=== PATIENT | male | born 1975 | race Caucasian/White ===

== ENCOUNTER 2022-09-17 13:42 | Emergency (ER) | payer OTHER, SELFPAY ==
[2022-09-17 13:51] VITALS: BP 148/107; PULSE 92; RESP 16; TEMP 36.6; O2SAT 93
[2022-09-17 13:55] VITALS: BP 148/107; PULSE 93; RESP 18; TEMP 37; O2SAT 94; BMI 24.9
--- NOTE | 2022-09-17 13:55 | ED.ALCOHOL ---
HPI - Alcohol General Chief Complaint: ETOH/Substance Use Stated Complaint: ETOH Time Seen by Provider: 09/17/22 13:46 Source: EMS Mode of arrival: EMS Limitations: other ( Significantly intoxicated) History of Present Illness HPI narrative: this is a 47-year-old male presenting via ambulance for acute alcohol intoxication. According to EMS patient was drinking since yesterday, family got nervous because he had 1 episode of vomiting so they called 911 to get him evaluated. Unsure what patient drink. Patient too intoxicated to give me a history or review of systems. No reported trauma. No evidence of trauma on my exam. Related Data Previous Rx's Medication Instructions Recorded ondansetron 4 mg disintegrating 4 mg PO Q6H PRN nausea and 09/17/22 tablet vomiting #14 tabs Allergies Allergy/AdvReac Type Severity Reaction Status Date / Time SEASONAL ALLERGIES Allergy Unknown UNKNOWN Uncoded 06/11/20 17:29 Review of Systems Review of Systems: Constitutional : No Weight loss, No Fever, No Chills, No Fatigue, No Malaise ENT/Mouth : No sore throat, No Rhinorrhea Eyes: No Eye Pain, No Swelling, No Redness Cardiovascular : No Chest Pain, No SOB, No Dyspnea on Exertion, No Orthopnea, No Edema, No Palpitations Respiratory : No Cough, No Sputum, No Wheezing Gastrointestinal : No Nausea, No Vomiting, No Diarrhea, No Constipation, No abdominal Pain, No Hematochezia, No Melena Genitourinary : No Dysuria, No Urinary Frequency, No Hematuria, Musculoskeletal : No joint pain, No Myalgias, No Joint Swelling Skin : No Skin Lesions, No rash Neuro : No Weakness, No Numbness, No Dizziness, No Headache Psych : No Anxiety/Panic, No Depression All other systems reviewed and are negative Yes all other systems are reviewed and are negative [facility] Past Medical History Attestation statement: The following information was validated with the patient. Source: old records reviewed and nursing notes reviewed Social History Social History Advance Directives: No Advance Directives Information Provided: No Physical Exam ED Vital Signs: Vital Signs - 24 hr 09/17/22 13:51 09/17/22 13:55 09/17/22 17:19 Temperature 97.9 F 98.6 F Pulse Rate 92 93 101 H Respiratory Rate 16 18 18 Blood Pressure 148/107 H 148/107 H 113/82 Pulse Oximetry 93 94 95 Oxygen Delivery Method Room Air Room Air Room Air BMI result Body Mass Index 24.9 vss Appearance: Alert.? Oriented X3.? No acute distress.? Head: Normocephalic, atraumatic, no step-offs or deformities Eyes: Pupils equal, round and reactive to light.? Neck: Normal inspection.? Neck supple.? CVS: Normal heart rate and rhythm.? Pulses normal.? Respiratory: No respiratory distress.? Breath sounds normal.? Abdomen: Soft and nontender.? Skin: Skin warm and dry.? Normal skin color.? Normal skin turgor.? Extremities: No lower extremity edema.? No calf ttp. 5/5 strength to bilateral upper and lower extremities Neuro: Oriented X 3.? No motor deficit.? No sensory deficit. CN 2-12 intact . Patient ambulating with steady gait normal coordination. Course Reevaluation(s) Reevaluation #1: Patient is still extremely intoxicated, talking to himself However is alert and oriented x3 at this time and ambulatory. Head CT with no acute findings. His ethanol level was 492. Urine toxicology negative. Patients sister states she can not get him this late because she is leaving town. At this time patient be placed into observation to allow more time to be evaluated by the behavioral health team for a substance use disorder evaluation. At time observation was started patient common cooperative no acute distress will continue to monitor. Time: 20:44 Medical Decision Making Medical Decision Making [facility] Narrative: 1358 47 year old male presents w/ acute alcohol intoxication from home PE very intoxicated individual. Smells like alcohol. Plan- REED, ETOH. No signs of trauma on exam no Lab Data Labs: Lab Results 09/17/22 09/17/22 Range/Units 14:17 16:46 Urine Opiates Screen Not Detected (Not Detect) Urine Fentanyl Screen Not Detected (Not Detect) Ur Barbiturates Screen Not Detected (Not Detect) Ur Phencyclidine Scrn Not Detected (Not Detect) Ur Amphetamines Screen Not Detected (Not Detect) U Benzodiazepines Scrn Not Detected (Not Detect) Urine Cocaine Screen Not Detected (Not Detect) U Marijuana (THC) Screen Not Detected (Not Detect) Ethyl Alcohol 492 H* mg/dL Medications Administered Discontinued Medications Generic Name Dose Route Start Last Admin Trade Name Freq PRN Reason Stop Dose Admin Ondansetron HCl 4 mg 09/17/22 13:50 09/17/22 14:00 Ondansetron Odt 4 Mg TabLandon BRANCH 09/17/22 13:51 4 mg ONCE ONE Administration Critical Care Time Critical Care Time Critical Care Time: No Discharge Plan Discharge Clinical Impression: Alcohol intoxication Patient Disposition: Home, Self-Care Instructions: Alcohol Intoxication (ED) Additional Instructions: Take your medications as prescribed. If you were prescribed antibiotics today, it is important that you take your medication to their entirety, do not skip any doses, do not finish them early. Follow-up with your primary care provider this week. Return to the emergency department with new or worsening symptoms. Such as fevers, chills, chest pain, shortness of breath, nausea, vomiting, dizziness, headache, vision changes, lethargy In case of emergency call 911 Drinking in excess can lead to nausea and vomiting, please return to the emergency department if there is blood in vomit or any new or worsening symptoms. Prescriptions: New ondansetron 4 mg tablet,disintegrating 4 mg PO Q6H PRN (Reason: nausea and vomiting) Qty: 14 0RF Referrals: [facility] [Provider Group] - 1 week
[2022-09-17 14:43] LABS: Ethanol 492 mg/dL
--- NOTE | 2022-09-17 17:05 | PC.NURSE ---
pt with etoh of 492 slurring words sleepy with unsteady gait ct pending
[2022-09-17 17:13] LABS: Amphetamine Screen Urine Not Detected (Not Detect); Barbiturates, Urine Not Detected (Not Detect); Benzodiazepines Screen Urine Not Detected (Not Detect); Cannabinoid Screen Urine Not Detected (Not Detect); Cocaine Screen Urine Not Detected (Not Detect); Fentanyl, urine Not Detected (Not Detect); Opiate Screen Urine Not Detected (Not Detect); Phencyclidine Screen Urine Not Detected (Not Detect)
[2022-09-17 17:19] VITALS: BP 113/82; PULSE 101; RESP 18; O2SAT 95
--- NOTE | 2022-09-17 18:54 | PC.NURSE ---
This mortgage or loan underwriter assumed care of this PT at this time.
--- NOTE | 2022-09-17 21:23 | PC.NURSE ---
Assumed care of pt. at 1945. Pt. lying in bed at this time. O2 sats dropped down to 88 and BP was noted to be low 89/53. Woke pt. up and repositioned and revitaled. 02 sats immediately back up to 97% and BP back to normal limits.
--- NOTE | 2022-09-17 21:25 | PC.NURSE ---
Pt. now awake in room and asking for something to eat. Provided with a ham sandwich and gingerale.
[2022-09-17 22:29] LABS: COVID-19 Test Negative (Negative)
[2022-09-17 23:22] VITALS: BP 130/88; PULSE 107; RESP 22; TEMP 36.6; O2SAT 92
--- NOTE | 2022-09-17 23:23 | MHC.EDTECH ---
Pt changed into hospital gown from outside clothes.Pt personal belongings placed in belongings bag. Pt urinal emptied output 800. Pt given warm blanket. Call maddox and urinal placed in reach
[2022-09-18 02:40] VITALS: BP 113/73; PULSE 112; RESP 20; TEMP 36.5; O2SAT 93
--- NOTE | 2022-09-18 04:20 | PC.NURSE ---
Pt. sleeping. No distress noted. Respirations even and unlabored. HR is at 100.
[2022-09-18 05:36] VITALS: BP 106/75; PULSE 113; RESP 19; TEMP 36.6; O2SAT 94
[2022-09-18 07:25] VITALS: BP 103/76; PULSE 108; RESP 17; TEMP 36.9; O2SAT 95
--- NOTE | 2022-09-18 07:49 | PC.NURSE ---
pt does not want Detox, notified
== END 2022-09-18 10:07 | disposition home or self-care (01) ==
PROVIDERS: Physician Assistant; Emergency Provider Internal Medicine
DX: F10.920 Alcohol use, unspecified with intoxication, uncomplicated (principal); Y90.8 Blood alcohol level of 240 mg/100 ml or more; Z20.822 Contact with and (suspected) exposure to COVID-19
CPT/HCPCS: 36415; 70450; 80307; 82077; 87635; 99284; 99285

== ENCOUNTER 2024-08-03 19:47 | Emergency (ER) | payer OTHER, SELFPAY ==
[2024-08-03 20:05] VITALS: BP 183/117; PULSE 97; RESP 16; TEMP 36.1; O2SAT 99; BMI 26.0
[2024-08-03 22:15] VITALS: BP 162/88; PULSE 98; RESP 18; TEMP 36.8; O2SAT 98
--- NOTE | 2024-08-03 22:21 | ED_ITS ---
HPI - Back Pain/Injury General Chief Complaint: Back Pain/Injury Stated Complaint: ? pinched nerve in back Time Seen by Provider: 08/03/24 21:51 Source: patient Mode of arrival: ambulatory Limitations: no limitations History of Present Illness ED Provider: rfanklyn BASURTO Narrative: Patient apparently slipped on the leaves 5 days ago since then having pain in the left lower back shooting to the leg patient was seen at [facility] CT scan x-rays were negative does not have any pain medication no prior history of back problems no bladder or bowel involvement Related Data Previous Rx's ?Medication ?Instructions ?Recorded ondansetron 4 mg disintegrating 4 mg PO Q6H PRN nausea and 09/17/22 tablet vomiting #14 tabs cyclobenzaprine 10 mg tablet 10 mg PO Q8H #20 tabs 08/03/24 oxycodone 5 mg tablet 5 mg PO Q6H PRN pain #20 tabs 08/03/24 Allergies Allergy/AdvReac Type Severity Reaction Status Date / Time SEASONAL ALLERGIES Allergy Unknown UNKNOWN Uncoded 08/03/24 20:08 Review of Systems Review of Systems: Yes all other systems are reviewed and are negative [facility] Social History Social History Alcohol intake: current Alcohol intake frequency: 3 or more drinks per day Alcohol type: beer Advance Directives: No Advance Directives Information Provided: Yes Do you have a plan to hurt others: No Plan Physical Exam Vital Signs: Vital Signs: Last Vital Signs Temp 98.3 F 08/03/24 22:51 Pulse 98 08/03/24 22:51 Resp 18 08/03/24 22:51 BP 162/88 H 08/03/24 22:51 Pulse Ox 98 08/03/24 22:51 O2 Del Method Room Air 08/03/24 22:51 BMI result Body Mass Index 26.0 Appearance: Alert. Oriented X3. No acute distress. ENT: Pharynx normal. Oral Mucosa moist Neck: Normal inspection. Neck supple. No midline tenderness CVS: Normal heart rate and rhythm. Pulses normal. Respiratory: No respiratory distress. Equal air entry bilateral, no wheezing/rales/rhonchi Abdomen: Soft and nontender. Bowel sounds are present, no mass palpable, no CVA tenderness Skin: Skin warm and dry. Normal skin color. Normal skin turgor. Extremities: No lower extremity edema. No calf tenderness diffuse tenderness right sciatic area SLR negative bilaterally sacral sensation intact Neuro: Oriented X 3. No motor deficit. No sensory deficit.No cerebellar signs , cranial nerves II-XII intact Medications Administered Discontinued Medications Generic Name Dose Route Start Last Admin Trade Name Freq PRN Reason Stop Dose Admin Cyclobenzaprine HCl 10 mg 08/03/24 22:21 08/03/24 22:46 Cyclobenzaprine Hcl 10 Mg Tablet PO 08/03/24 22:22 10 mg ONCE ONE Administration Oxycodone HCl 5 mg 08/03/24 22:21 08/03/24 22:44 Oxycodone Hcl Immed Release 5 Mg Tablet PO 08/03/24 22:22 5 mg ONCE ONE Administration Medical Decision Making Medical Decision Making [facility] Narrative: Patient with low back contusion no signs of spinal cord injuries will give him muscle relaxant and pain medication patient ambulatory in steady gait Discharge Plan Discharge Clinical Impression: Strain of lumbar region Patient Disposition: Home, Self-Care Instructions: Low Back Strain (ED) Additional Instructions: Take pain medication and muscle relaxant prescribed Follow with your PCP Prescriptions: New cyclobenzaprine 10 mg tablet 10 mg PO Q8H Qty: 20 0RF oxycodone 5 mg tablet 5 mg PO Q6H PRN (Reason: pain) Qty: 20 0RF Rx Instructions: Partial Fill upon patient request. No Action ondansetron 4 mg tablet,disintegrating 4 mg PO Q6H PRN (Reason: nausea and vomiting) Qty: 14 0RF Interventions: ED Discharge Assessment Last Done: 08/03/24 22:51 Discharge Date/Time: 08/03/24 22:52 Print Language: Romansh
[2024-08-03] MEDS: oxyCODONE HCl Immed Release 5 MG TABLET PO (22:44)
[2024-08-03] MEDS: Cyclobenzaprine HCl 10 MG TABLET PO (22:46)
[2024-08-03 22:51] VITALS: BP 162/88; PULSE 98; RESP 18; TEMP 36.8; O2SAT 98
== END 2024-08-03 22:52 | disposition home or self-care (01) ==
PROVIDERS: Emergency Provider Internal Medicine
DX: S39.012A Strain of muscle, fascia and tendon of lower back, initial encounter (principal); W01.0XXA Fall on same level from slipping, tripping and stumbling without subsequent striking against object, initial encounter; Y93.H1 Activity, digging, shoveling and raking; Y92.007 Garden or yard of unspecified non-institutional (private) residence as the place of occurrence of the external cause; Y99.9 Unspecified external cause status
CPT/HCPCS: 99283

== ENCOUNTER 2024-08-10 22:28 | Emergency (ER) | payer OTHER, SELFPAY ==
[2024-08-10 22:39] VITALS: BP 146/87; BP 150/110; PULSE 111; PULSE 119; RESP 16; TEMP 37.2; O2SAT 95; BMI 26.3
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
[2024-08-10 23:50] VITALS: BP 115/79; PULSE 62; RESP 16; TEMP 36.3; O2SAT 97
[2024-08-11] MEDS: oxyCODONE HCl Immed Release 5 MG TABLET PO
[2024-08-11 00:06] VITALS: BP 115/79; PULSE 62; RESP 16; TEMP 36.3; O2SAT 97
== END 2024-08-11 00:06 | disposition home or self-care (01) ==
PROVIDERS: Emergency Provider Internal Medicine
DX: M54.50 Low back pain, unspecified (principal); M25.511 Pain in right shoulder
CPT/HCPCS: 99283

== ENCOUNTER 2024-11-26 02:08 | Emergency (ER) | payer OTHER, SELFPAY ==
[2024-11-26 02:15] VITALS: BP 156/113; BP 156/88; PULSE 114; PULSE 115; RESP 18; TEMP 37.1; O2SAT 97; O2SAT 98; BMI 29.3
[2024-11-26 02:27] LABS: MANUAL DIFF FLAG NO
[2024-11-26 02:28] LABS: Basophils Absolute Auto 0.1 X10*3/uL (0.0-0.2); Eosinophils Absolute Auto 0.1 X10*3/uL (0.0-0.4); Eosinophils Percent Auto 1.9 % (0-4); Hematocrit 43.6 % (42.0-52.0); Hemoglobin 15.1 g/dl (14.0-18.0); Imm Gran Abs Auto 0.01 X10*3/uL (0.00-0.03); Imm Gran Pct Auto 0.2 % (0.0-0.4); Lymphocytes Absolute Auto 1.4 X10*3/uL (1.2-4.9); Lymphocytes Percent Auto 27.1 % (20-40); Mean Corpuscular HGB Conc 34.6 g/dl (31.0-36.0); Mean Corpuscular Hemoglobin 31.4 pg (27.0-33.0); Mean Corpuscular Volume 90.6 fL (80.0-98.0); Mean Platelet Volume 9.6 fL (9.4-12.4); Monocytes Absolute Auto 0.5 X10*3/uL (0.1-1.2); Monocytes Percent Auto 10.3 % (2-11); Neutrophils Absolute Auto 3.1 x10*3/uL (2.0-8.3); Neutrophils Percent Auto 59.5 % (45-73); Platelet Count 230 X10*3/uL (160-400); Red Blood Count 4.81 X10*6/uL (4.60-5.80); Red Cell Distribution Width 12.2 % (11.0-16.0); White Blood Count 5.2 X10*3/uL (4.8-10.8)
[2024-11-26 02:48] LABS: Alanine Aminotransferase 185 U/L (0-40); Albumin Level 4.7 g/dL (3.5-5.0); Anion Gap 17 (12-20); Aspartate Amino Transferase 84 U/L (5-37); Bilirubin Direct 0.2 mg/dL (0.0-0.5); Bilirubin Total 0.4 mg/dL (0.0-1.0); Blood Urea Nitrogen 9 mg/dL (9-16); Calcium 9.7 mg/dL (8.4-10.2); Carbon Dioxide 22 mmol/L (22-29); Chloride 105 mmol/L (96-108); Creatinine Clr Calc Pharmacy 106.9; Estimated Glomerular Filt Rate > 60; Glucose Random 101 mg/dL (60-115); Lipase 27 U/L (8-78); Sodium 140 mmol/L (135-145); Total Protein 8.7 g/dL (6.5-8.0)
[2024-11-26 02:54] LABS: Alkaline Phosphatase 94 U/L (39-117)
[2024-11-26 04:10] LABS: Ethanol 209 mg/dL
[2024-11-26 05:46] VITALS: BP 146/105; PULSE 96; RESP 18; TEMP 36.6; O2SAT 96
--- OUTSIDE RECORDS SUMMARY | 2024-11-26 06:15 | XMS_ITS ---
Author Organization [facility] Address [address] [place], [place] [id number] Care Team Providers Care Proposal Coordinator Name Role Phone IRENE Vázquez Primary Care Provider Uday Reynoso Unavailable Unavailable Padma Mayfield Encounters Encounter Location Date Provider Diagnosis [facility] [address] [place] [phone] 04/05/2024 Padma Mayfield Plan Of Treatment No Information Progress Notes * Lj PATELDOB:1974 (49 yo M)Acc No.[id number]:04/05/2024 Case Management Patient:?Lj PATEL Provider:Regina Mayfield :1975???Age:49 Y???Sex:Male Manoj e:04/05/2024 Address:[address] [address], [facility] Pcp:IRENE Bañuelos Subjective: * Chief Complaints: * ??? * Medical History:? Objective: Assessment: Plan: * Treatment: * Images: Billing Information: * Visit Code:? * Procedure Codes:? Care Plan Details* * Electronic signature of Jluis Mayfield on 11/26/2024 at 06:15 AM EST Sign off status: Pending * Provider:Regina Mayfiled Date:? Generated for Shruthi bailey/Ya/eTransmitting on:?11/26/2024 06:15 AM EST
--- OUTSIDE RECORDS SUMMARY | 2024-11-26 06:15 | XMS_ITS ---
Author Organization [facility] Address [address] [place], [place] [id number] Care Team Providers Care Dispatch Coordinator Name Role Phone IRENE Vázquez Primary Care Provider Uday Reynoso Unavailable Unavailable Padma Mayfield [phone] Encounters Encounter Location Date Provider Diagnosis [facility] [address] [place] [phone] 01/26/2024 Padma Mayfield Plan Of Treatment No Information Progress Notes * Lj PATELDOB:1974 (49 yo M)Acc No.[id number]:01/26/2024 Case Management Patient:?Lj PATEL Provider:Regina Mayfield :1975???Age:49 Y???Sex:Male Manoj e:01/26/2024 Address:[address] [address], [facility] Pcp:IRENE Bañuelos Subjective: * Chief Complaints: * ??? * Medical History:? Objective: Assessment: Plan: * Treatment: * Images: Billing Information: * Visit Code:? * Procedure Codes:? Care Plan Details* * Electronic signature of Jluis Mayfield on 11/26/2024 at 06:15 AM EST Sign off status: Pending * Provider:Regina Mayfield Date:? Generated for Shruthi bailey/Ya/eTransmitting on:?11/26/2024 06:15 AM EST
--- OUTSIDE RECORDS SUMMARY | 2024-11-26 06:15 | XMS_ITS ---
Author Organization [facility] Address [address] [place], [place] [id number] Care Team Providers Care Transport Driver Name Role Phone IRENE Vázquez Primary Care Provider Uday Reynoso Unavailable Unavailable Padma Mayfield Encounters Encounter Location Date Provider Diagnosis [facility] [address] [place] [phone] 02/20/2024 Padma Mayfield Plan Of Treatment No Information Progress Notes * Lj PATELDOB:1974 (49 yo M)Acc No.[id number]:02/20/2024 Case Management Patient:?Lj PATEL Provider:Regina Mayfield :1975???Age:49 Y???Sex:Male Manoj e:02/20/2024 Address:[address] [address], [facility] Pcp:IRENE Bañuelos Subjective: * Chief Complaints: * [...]
--- OUTSIDE RECORDS SUMMARY | 2024-11-26 06:16 | XMS_ITS | Clinical Summary ---
Author Organization [facility] Address [address] [place] [address] Care Team Providers Care Passenger Interline Clerk Name Role Phone Unavailable Primary Care Provider Unavailabl e Source Comments PLEASE NOTE, if this patient is a minor, it may be UNLAWFUL to discuss sensitive information that is contained in these records (such as FAMILY PLANNING, MENTAL HEALTH or SUBSTANCE ABUSE) with the minor patient's parent or other person without the patient's specific authorization.[facility] Medications amoxicillin (AMOXIL) 500 mg capsuleIndications :Tooth infection Take 1 Capsule by mouth 3 (three) times daily 21 Capsule 2 Active ibuprofen 800 mg tabletIndications: Tooth pain Take 1 Tablet by mouth 3 (three) times daily as needed for pain 30 Tablet 2 Active ibuprofen 600 mg tabletIndications: Chronic apical periodontitis Take 1 Tablet by mouth 4 (four) times daily as needed for mild pain 20 Tablet 2 Active Active Problems No known active problems Social History Tobacco Use Types Packs/Day Years Used Date Smoking Tobacco: Never Smokeless Tobacco: Never Tobacco Cessation:Counseling Given: Not Answered Social Connections Answer Date Recorded Connectedness 0 06/13/2024 Financial Resource Strain Answer Date R ecorded Financial Resource Strain 0 2021 Stress Answer Date Recorded Stress 0 04/11/2022 Physical Activity Answer Date Recorded Physical Activity 0 04/11/2022 Food Insecurity Answer Date Recorded Food 0 06/20/2024 Transportation Needs Answer Date Record ed Transportation 0 04/11/2022 Housing Stability Answer Date Recorded Housing 0 04/11/2022 Safety and Environment Answer Date Andrew rded Safety 0 04/11/2022 Utilities Answer Date Recorded Utilities 0 04/11/2022 Employment Answer Date Recorded Stress 0 06/13/2024 Sex and Gender Information Value Date Recorded Sex Assigned at Not on file Legal Sex Male 11:50 AM PDT Gender Identity Not on file Sexual Orientation Not on file Last Filed Vital Signs Vital Sign Reading Time Taken Comments Blood Pressure 145/106 05/07/2022 11:51 AM EDT Pulse 90 05/07/2022 11:51 AM EDT Temperature - - Respiratory Rate - - Oxygen Saturation - - Inhaled Oxygen Concentration - - Weight - - Height - - Body Mass Index - - Plan of Treatment Health Maintenance Due Date Last Done Comments Diabetes Screening 1975 Hepatitis B Screening 1975 Hepatitis C Screening 1975 Lipid Screening 1975 Tobacco Screening 1975 HIV Screening 1975 Syphilis Screening 01/16/1989 Imm-DTaP/Tdap/Td (1 - Tdap) 1994 Imm-Hepatitis A (1 of 2 - Risk 2-dose series) 01/15/19 94 Imm-Hepatitis B (1 of 3 - 19+ 3-dose series) 4 CT Colonography 01/16/2020 Colonoscopy 01/16/2020 Colorectal Cancer Screening 01/16/2020 FIT/gFOBT 01/16/2020 Fecal DNA 01/16/2020 Flexible Sigmoidoscopy 01/16/2020 Hypertension Screening (#1) 05/07/2023 [id number] ( season) 2024 Imm-Influenza (#1) 2024 Alcohol and Drug Screen 09/25/2024 Depression Annual Screen 09/25/2024 Insurance [place] MEDICA[place] DENT[place] [facility]
== END 2024-11-26 06:12 | disposition left against medical advice (07) ==
LOC: HO.ED 06:12
PROVIDERS: Emergency Provider Emergency Medicine
DX: R10.9 Unspecified abdominal pain (principal); Z79.899 Other long term (current) drug therapy
CPT/HCPCS: 36415; 80048; 80076; 80307; 83690; 85025; 99281

== ENCOUNTER 2025-01-22 01:11 | Emergency (ER) | payer OTHER, SELFPAY ==
[2025-01-22 01:14] VITALS: BP 130/70; PULSE 94; O2SAT 98
[2025-01-22 01:44] VITALS: BP 148/97; PULSE 109; RESP 18; TEMP 36.7; O2SAT 97; BMI 24.1
--- NOTE | 2025-01-22 01:45 | ED_ITS ---
HPI - Abdominal Pain General Stated Complaint: ETOH Time Seen by Provider: 01/22/25 01:22 Source: patient and EMS Mode of arrival: EMS Limitations: no limitations History of Present Illness ED Provider: Dr. Alisson Prince HPI narrative: patient comes to the emergency room via EMS. According to EMS, the patient called them because he was feeling intoxicated. When I spoke with the patient, patient states that he has left lower quadrant pain and would like to have it checked. However, patient states that he wants pain medication, does not want any labs done, patient states that if we do not give him a private room he will leave against medical advice. Related Data Previous Rx's ?Medication ?Instructions ?Recorded ondansetron 4 mg disintegrating 4 mg PO Q6H PRN nausea and 09/17/22 tablet vomiting #14 tabs cyclobenzaprine 10 mg tablet 10 mg PO Q8H #20 tabs 08/03/24 oxycodone 5 mg tablet 5 mg PO Q6H PRN pain #20 tabs 08/03/24 cyclobenzaprine 10 mg tablet 10 mg PO Q8H #20 tabs 08/10/24 ibuprofen 600 mg tablet 600 mg PO Q6H PRN fever or pain 08/10/24 #30 tabs Allergies Allergy/AdvReac Type Severity Reaction Status Date / Time SEASONAL ALLERGIES Allergy Unknown UNKNOWN Uncoded 01/22/25 01:49 Review of Systems Review of Systems Constitutional : No Weight loss, No Fever, No Chills, No Night Sweats, No Fatigue, No Malaise ENT/Mouth : No Hearing loss, No Ear Pain, No Nasal Congestion, No Sinus Pain, No Hoarseness, No sore throat, No Rhinorrhea, No Swallowing Difficulty Eyes: No Eye Pain, No Swelling, No Redness, No Foreign Body, No Discharge, No Vision Changes Cardiovascular : No Chest Pain, No SOB, No Dyspnea on Exertion, No Orthopnea, No Edema, No Palpitations Respiratory : No Cough, No Sputum, No Wheezing, No Smoke Exposure, No Dyspnea Gastrointestinal : No Nausea, No Vomiting, No Diarrhea, No Constipation, Complaining of left lower quadrant pain Genitourinary : no irregular bleeding, No Dysuria, No Urinary Frequency, No Hematuria, No Urinary Incontinence, No Urgency, No Flank Pain, No Urinary Flow Changes, No Hesitancy Musculoskeletal : No joint pain, No Myalgias, No Joint Swelling Skin : No Skin Lesions, No rash Neuro : No Weakness, No Numbness, No Paresthesias, No Loss of Consciousness, No Dizziness, No Headache Psych : No Anxiety/Panic, No Depression, No SI/HI/AH/VH, No Social Issues, Heme/Lymph: No Bruising, No Bleeding,No Lymphadenopathy Endocrine : No Polyuria, No Polydipsia, No Temperature Intolerance [facility] Past Medical History Medical History Alcohol abuse Social History Social History Alcohol intake: current Alcohol intake frequency: 3 or more drinks per day Alcohol type: beer Physical Exam ED Const Other: Appearance: Alert. Oriented X3. No acute distress. patient is able to have a coherent conversation. Eyes: Pupils equal, round and reactive to light. ENT: Pharynx normal. Neck: Normal inspection. Neck supple. No lymph nodes noted. No crepitus CVS: Normal heart rate and rhythm. Pulses normal. Normal S1 and S2 Respiratory: No respiratory distress. Breath sounds normal. No Wheezing. No rales Abdomen: Soft and nontender. No rigidity. No distention. Skin: Skin warm and dry. Normal skin color. Normal skin turgor. Extremities: No lower extremity edema. No Lacerations. No Rash Neuro: Oriented X 3. No motor deficit. No sensory deficit. Moving all extremities. No slurred speech. CN 2 through 12 grossly intact Psych: calm, cooperative, normal affect Course Course Course Narrative: Patient is alert and oriented x3, patient has normal steady gait. Coherent. Patient demanding pain for left lower quadrant pain, states that he would like to have it addressed and checked . Patient declined any blood work or imaging. Patient is demanding a private room and oxycodone, otherwise he will leave. I discussed with the patient that at this time, we can not accommodate his request of putting him in a room, the emergency department is completely full. Patient declined any further assistance and would like to be discharged. I discussed with the patient that without any lab work or imaging we can not help him to determine what is causing the left lower quadrant pain. Patient leaving against medical advice. Clinically, patient is sober, ambulating with steady gait, coherent Discharge Plan Discharge Clinical Impression: Left lower quadrant pain, Alcohol abuse Patient Disposition: Left Against Medical Advice Instructions: Acute Abdominal Pain (ED), Abdominal Pain (ED) Additional Instructions: Please follow-up with your primary care physician tomorrow. If you have any worsening or new symptoms, please return to the emergency room or call 911 Prescriptions: No Action ondansetron 4 mg tablet,disintegrating 4 mg PO Q6H PRN (Reason: nausea and vomiting) Qty: 14 0RF cyclobenzaprine 10 mg tablet 10 mg PO Q8H Qty: 20 0RF ibuprofen 600 mg tablet 600 mg PO Q6H PRN (Reason: fever or pain) Qty: 30 0RF cyclobenzaprine 10 mg tablet 10 mg PO Q8H Qty: 20 0RF oxycodone 5 mg tablet 5 mg PO Q6H PRN (Reason: pain) Qty: 20 0RF Rx Instructions: Partial Fill upon patient request. Print Language: Stateless
--- NOTE | 2025-01-22 01:49 | PC.NURSE ---
Pt changed over by security and line maintenance technician. Pt A&Ox3, ambulated independently with steady gait.
--- NOTE | 2025-01-22 02:00 | PC.NURSE ---
This RN assumed care of pt but pt refused to be treated. Pt evaluated by MD and told MD that he did not want to be seen. Pt alert and oriented X4, ambulating in lopez without difficulty. Attempted to utilize park interpreter but pt stated he spoke Danish and did not want to talk with park interpreter. Pt refused to sign consent to treat with registration. Pt given back all belongings and escorted out by security.
[2025-01-22 02:02] VITALS: BP 148/97; PULSE 109; RESP 18; TEMP 36.7; O2SAT 97
== END 2025-01-22 02:09 | disposition left against medical advice (07) ==
LOC: HO.ED 02:07
PROVIDERS: Emergency Provider Emergency Medicine
DX: R10.32 Left lower quadrant pain (principal); F10.10 Alcohol abuse, uncomplicated; Y90.9 Presence of alcohol in blood, level not specified; Z53.29 Procedure and treatment not carried out because of patient's decision for other reasons
CPT/HCPCS: 99282; 99283

== ENCOUNTER 2025-04-01 17:07 | Emergency (ER) | payer OTHER, SELFPAY ==
[2025-04-01 17:26] VITALS: BP 131/82; PULSE 94; RESP 18; TEMP 36.6; O2SAT 95; O2SAT 99; BMI 28.6
--- NOTE | 2025-04-01 17:44 | ECG_ITS ---
Test Reason : L ARM PAIN Blood Pressure : */* mmHG Vent. Rate : 88 BPM Atrial Rate : 88 BPM P-R Int : 156 ms QRS Dur : 86 ms QT Int : 374 ms P-R-T Axes : 32 -6 23 degrees QTcB Int : 452 ms Normal sinus rhythm Minimal voltage criteria for LVH, may be normal variant ( R in aVL ) Nonspecific T wave abnormality Abnormal ECG When compared with ECG of 30-Jun-2024 23:57, Criteria for Septal infarct are no longer Present Referred By: Harmeet Fuentes Electronically Signed By: Ron Joshua
--- OUTSIDE RECORDS SUMMARY | 2025-04-01 17:48 | XMS_ITS | Clinical Summary ---
Author Organization [facility] Address [address] [place] [address] Phone Care Team Providers Care Aircraft Mechanic Electrical And Radio Name Role Phone Physician, Pcp Unknown Primary Care Provider Dacia vailable Allergies No known active allergies Encounters Date Type Department Care Team Description 02/27/2025 2:09 AM EDT - 02/27/2025 3:[address] [facility] Emergency [address] [place] [address] Discharge Disposition: Left Against Medical Advice from Last 3 Months Social History Tobacco Use Types Packs/Day Years Used Date Smoking Tobacco: Never Assessed Sex and Gender Information Value Date Recorded Sex Assigned at Not on file Legal Sex Male 2:55 AM EST Gender Identity Not on file Sexual Orientation Not on file Last Filed Vital Signs Vital Sign Reading Time Taken Comments Blood Pressure 130/94 02/27/2025 2:30 AM EDT Pulse 90 02/27/2025 2:25 AM EDT Temperature 36.4 C (97.5 F) 02/27/2025 2:25 AM EDT Respiratory Rate 18 02/27/2025 2:25 AM EDT Oxygen Saturation 97% 02/27/2025 2:25 AM EDT Inhaled Oxygen Concentration - - Weight - - Height - - Body Mass Index - - Plan of Treatment Health Maintenance Due Date Last Done Comments Hepatitis B Vaccines (1 of 3 - 19+ 3-dose series) 1994 Cholesterol Screening (Lipid Panel) 08/28/2022 Colorectal Cancer Screening: Colonoscopy 08/28/2022 Depression Screening 08/28/2022 HIV Screening 08/28/2022 Hepatitis C Screening 08/28/2022 Social Influencers of Health Screening 08/28/2022 Pneumococcal Vaccine: 50+ Years (1 of 1 - PCV) 2025 Zoster Vaccines (1 of 2) 2025 Influenza Vaccine (#1) 2025 , 07/10/2023, 07/25/2022, Additional history exists DTaP,Tdap,and Td Vaccines (2 - Td or Tdap) 06/23/2031 06/23/2021 COVID-19 Vaccine Completed 07/18/2024, , 08/17/2022, Additional history exists HIB Vaccines Aged Out No longer eligi ble based on patient's age to complete this topic HPV Vaccines Aged Out No longer eligi ble based on patient's age to complete this topic Hepatitis A Vaccines Aged Out No long er eligible based on patient's age to complete this topic IPV Vaccines Aged Out No longer eligi ble based on patient's age to complete this topic MMR Vaccines Aged Out No longer eligi ble based on patient's age to complete this topic Meningococcal ACWY Vaccine Aged Out N o longer eligible based on patient's age to complete this topic Meningococcal B Vaccine Aged Out No l onger eligible based on patient's age to complete this topic Pneumococcal Vaccine: Pediatrics (0 to 5 Years) and At-Risk Patients (6 to 49 Years) Aged Out No longer eligible based on patient's age to complete this topic RSV Immunization Patients Under 20 months Aged Out No longer eligible based on patient's age to complete this topic Varicella Vaccines Aged Out No longer eligible based on patient's age to complete this topic Insurance [facility] MEDICAID ADVANTAGE Advance Directives Documents on File Type Date Recorded Patient Wire Sawyer Expl anation Health Care Decision (hx) 03/15/2022 AD FLANNERY DIRECTIVE Health Care Decision (hx) 03/15/2022 AD FLANNERY DIRECTIVE Health Care Decision (hx) 03/15/2022 AD FLANNERY DIRECTIVE Health Care Decision (hx) 03/15/2022 AD FLANNERY DIRECTIVE Health Care Decision (hx) 03/15/2022 AD FLANNERY DIRECTIVE Health Care Decision (hx) 03/15/2022 AD FLANNERY DIRECTIVE Health Care Decision (hx) 03/15/2022 AD FLANNERY DIRECTIVE Care Teams Aircraft Mechanic Electrical And Radio Relationship Specialty Start Date End Date Physician, Pcp Unknown PCP - General 02/27/25
--- OUTSIDE RECORDS SUMMARY | 2025-04-01 17:48 | XMS_ITS | Clinical Summary ---
Author Organization [facility] Address [address] [place] [address] Care Team Providers Care Injection Molding Machine Setter Name Role Phone Unavailable Primary Care Provider [...] Mass Index - - Plan of Treatment Upcoming Encounters Date Type Department Care Team (Late st Contact Info) Description 05/02/2025 1:00 PM EDT [facility] Visit [facility] [address] [place] [phone] Kassi Ramirez DDS [address] [place] [address] Health Maintenance Due Date Last Done Comments Anxiety Screening 1975 Diabetes Screening 1975 Hepatitis B Screening 1975 [...] Flexible Sigmoidoscopy 01/16/2020 Hypertension Screening (#1) 05/07/2023 [id number] (1 - 2023- season) 2024 Alcohol and Drug Screen 09/25/2024 Depression Annual Screen 09/25/2024 Imm-Pneumococcal 50+ (1 of 1 - PCV) 2025 Imm-Zoster, Recombinant (1 of 2) 2025 Imm-Influenza (#1) 2025 Insurance [place] [facility] [place] [id number]
--- NOTE | 2025-04-01 17:55 | ED_ITS ---
HPI - General Adult General Chief complaint: Allergic Reaction Stated complaint: allergic reaction to bee sting Time Seen by Provider: 04/01/25 17:23 History of Present Illness ED Provider: Harmeet Fuentes MD HPI narrative: This is a 50-year-old male initially I thought there was a language barrier but later felt he was possibly intoxicated with alcohol limiting the history. Patient through the plating department helper tells me that he was stung by a black and yellow insect he thought it was a bee early this morning at about 10:00. He said he felt itchy on the left arm but delayed calling until just before arrival here calling 911 for help. Denies chest pain he denies any focal neurologic complaints. He denies to me that he is drinking alcohol but has a documented history of alcohol use disorder in our system. EMS gave oral Benadryl. The patient arrived with normal vitals protecting his airway no urticaria or obvious oropharyngeal edema. Related Data Allergies Allergy/AdvReac Type Severity Reaction Status Date / Time bee pollen (bee stings) Allergy Nausea and Verified 04/01/25 17:28 Vomiting [facility] Social History Social History Alcohol intake: current Smoked in Last 30 Days: No Advance Directives: No Advance Directives Information Provided: No Physical Exam ED Vital Signs: Vital Signs - 24 hr 04/01/25 17:26 Temperature 97.8 F Pulse Rate 94 Respiratory Rate 18 Blood Pressure 131/82 Pulse Oximetry 95 Oxygen Delivery Method Room Air BMI result Body Mass Index 28.6 EXAM: Gen: Alert, looks little bit confused and not following commands very well. glassy eyes I do question alcohol intoxication as he does look a little bit like that Head: Atraumatic Eyes: Anicteric, Normal conjunctiva. ENT: Moist mucosa, no pallor. ? Neck: Supple. Skin: ?No observable rash or bruising on exposed or examined skin Respiratory: Breathing comfortably, No distress.Clear to auscultation bilaterally, symmetric chest expansion, No wheeze, rales, ronchi. Cardiovascular: Regular rate and rhythm. No murmurs or rub. Well perfused periphery, warm extremities. No edema. ? Abdominal: No focal tenderness. Soft, no objective distension. No palpable masses or obvious organomegaly. ?No guarding, no rebound tenderness or other peritoneal findings. : No flank tenderness. Neuro: Alert. Gross movement of all extremities intact. ? Psych: Calm. Cooperative. MSK: No grossly visible deformity. Vital signs: See flowsheet Medical Decision Making Medical Decision Making MDM Narrative: Medical Decision Making: This is a 50-year-old male who called EMS concerned personally for describing being stung by a bee many hours ago in the back of the left neck he feels nauseated vomited once nonbloody nonbilious. EMS gave Benadryl. He did not complain of oropharyngeal swelling dysarthria difficulty breathing or stridor. He has no previous allergies or anaphylaxis. is at the bedside provides additional history. Nurse called me to the bedside shortly after the patient's arrival she is felt he was acting abnormal. I came to evaluate the patient who had a slightly glossy eyes and was not following commands very well had no focal deficits and no signs of anaphylaxis or angioedema or urticaria. I saw no signs of insect bite envenomation or trauma to the neck. He looked intoxicated with alcohol to me but he denied this. Later his alcohol returned positive likely explaining his symptoms. We monitored him briefly and 1 safely walking with steady gait clear speech his took him home. Preliminary Favored Differential Diagnosis: Alcoholic intoxication, insect bite allergy among additional considered etiologies Testing Interpreted Independently: ECG sinus rhythm rate 88 QTC 452, ST- elevation concave upward V2 and V3 not suggestive of ischemic changes probably LVH. No reciprocal changes. Radiology or Lab testing Results Reviewed: Not Applicable Consults: Not Applicable Independent Historians/External Chart Reviews: provide additional history, EMS provided additional history Social Determinants of Health Impacting MDM/Planning: Not Applicable Lab Data 04/01/25 18:21 04/01/25 18:21 Labs: Lab Results 04/01/25 Range/Units 18:21 WBC 4.5 L (4.8-10.8) X10*3/uL RBC 4.87 (4.60-5.80) X10*6/uL Hgb 15.3 (14.0-18.0) g/dl Hct 43.0 (42.0-52.0) % MCV 88.3 (80.0-98.0) fL MCH 31.4 (27.0-33.0) pg MCHC 35.6 (31.0-36.0) g/dl RDW 12.1 (11.0-16.0) % Plt Count 308 (160-400) X10*3/uL MPV 9.4 (9.4-12.4) fL Immature Gran % (Auto) 0.4 (0.0-0.4) % Neut % (Auto) 49.0 (45-73) % Lymph % (Auto) 41.3 H (20-40) % [place] % (Auto) 5.5 (2-11) % Eos % (Auto) 2.9 (0-4) % Baso % (Auto) 0.9 (0-2) % Lymph # (Auto) 1.9 (1.2-4.9) X10*3/uL [place] # (Auto) 0.3 (0.1-1.2) X10*3/uL Eos # (Auto) 0.1 (0.0-0.4) X10*3/uL Baso # (Auto) 0.0 (0.0-0.2) X10*3/uL Abs Immat Gran (auto) 0.02 (0.00-0.03) X10*3/uL Absolute Neuts (auto) 2.2 (2.0-8.3) x10*3/uL Absolute Nucleated RBC 0.000 (0.0-0.012) X10*3/uL Nucleated RBC % (auto) 0.0 (0.0-0.2) /100WBC Sodium 137 (135-145) mmol/L Potassium 3.6 (3.3-5.1) mmol/L Chloride 102 (96-108) mmol/L Carbon Dioxide 21 L (22-29) mmol/L Anion Gap 18 (12-20) BUN 7 L (9-16) mg/dL Creatinine 0.66 (0.5-1.4) mg/dL Estim Creat Clear Calc 124.5 Estimated GFR > 60 Random Glucose 96 (60-115) mg/dL Calcium 8.4 D (8.4-10.2) mg/dL Total Bilirubin 0.3 (0.0-1.0) mg/dL AST 119 H (5-37) U/L ALT 121 H (0-40) U/L Alkaline Phosphatase 86 (39-117) U/L Total Protein 7.7 (6.5-8.0) g/dL Albumin 4.5 (3.5-5.0) g/dL Ethyl Alcohol 396 H* mg/dL Discharge Plan Discharge Clinical Impression: Alcohol intoxication Patient Disposition: Home, Self-Care Instructions: Alcohol Intoxication (ED) Additional Instructions: You were found to be intoxicated, you were monitored in the emergency department until you were clinically sober. Interventions: ED Discharge Assessment Last Done: 04/01/25 21:32 Discharge Date/Time: 04/01/25 21:33 Print Language: Croatian
[2025-04-01 18:24] LABS: MANUAL DIFF FLAG NO
[2025-04-01 18:27] LABS: Hematocrit 43.0 % (42.0-52.0); Hemoglobin 15.3 g/dl (14.0-18.0); Imm Gran Abs Auto 0.02 X10*3/uL (0.00-0.03); Imm Gran Pct Auto 0.4 % (0.0-0.4); Lymphocytes Absolute Auto 1.9 X10*3/uL (1.2-4.9); Mean Corpuscular HGB Conc 35.6 g/dl (31.0-36.0); Mean Corpuscular Hemoglobin 31.4 pg (27.0-33.0); Mean Corpuscular Volume 88.3 fL (80.0-98.0); NRBC Abs Auto 0.000 X10*3/uL (0.0-0.012); NRBC Pct Auto 0.0 /100WBC (0.0-0.2); Platelet Count 308 X10*3/uL (160-400); Red Blood Count 4.87 X10*6/uL (4.60-5.80); White Blood Count 4.5 X10*3/uL (4.8-10.8)
[2025-04-01 18:40] LABS: Alanine Aminotransferase 121 U/L (0-40); Albumin Level 4.5 g/dL (3.5-5.0); Alkaline Phosphatase 86 U/L (39-117); Anion Gap 18 (12-20); Aspartate Amino Transferase 119 U/L (5-37); Blood Urea Nitrogen 7 mg/dL (9-16); Calcium 8.4 mg/dL (8.4-10.2); Carbon Dioxide 21 mmol/L (22-29); Chloride 102 mmol/L (96-108); Creatinine Clr Calc Pharmacy 124.5; Estimated Glomerular Filt Rate > 60; Potassium 3.6 mmol/L (3.3-5.1); Sodium 137 mmol/L (135-145); Total Protein 7.7 g/dL (6.5-8.0)
--- NOTE | 2025-04-01 18:47 | PC.NURSE ---
provider brought to room pt pt is sweaty and not following commands. not following hand grasp commands, not answering questions appropriately. MD at bedside preforms stroke scale. Pt states hold PO meds that were ordered and draw labs. ETOH came back 390s. Pt denies drinking any alcohol. he reports a bee sting this AM. There is no obvious sting or swelling to the back of his neck were he reports a sting.
[2025-04-01 19:11] VITALS: BP 128/89; PULSE 96; RESP 16; TEMP 36.4; O2SAT 95
--- NOTE | 2025-04-01 21:31 | PC.NURSE ---
reviewed discharge instructions with pt. pt verbalized understanding, no sign of distress.
[2025-04-01 21:32] VITALS: BP 128/89; PULSE 96; RESP 16; TEMP 36.4; O2SAT 95
== END 2025-04-01 21:33 | disposition home or self-care (01) ==
PROVIDERS: Emergency Provider Emergency Medicine
DX: F10.120 Alcohol abuse with intoxication, uncomplicated (principal); Y90.8 Blood alcohol level of 240 mg/100 ml or more
CPT/HCPCS: 36415; 80053; 80307; 85025; 93005; 99283; 99284

== ENCOUNTER → 2025-04-01 17:44 | Outpatient (BNV) | payer OTHER, SELFPAY | PROVIDERS: Emergency Provider Emergency Medicine; Visit Provider Internal Medicine Cardiovascular Disease | DX: R94.31 Abnormal electrocardiogram [ECG] [EKG] (principal); M79.602 Pain in left arm | CPT/HCPCS: 93010 ==

== ENCOUNTER 2025-06-01 23:58 | Emergency (ER) | payer OTHER, SELFPAY ==
--- OUTSIDE RECORDS SUMMARY | 2024-01-26 09:15 | XMS_ITS ---
Author Organization [facility] Address [address] [place] [address] Care Team Providers Care Manager Of Distribution Name Role Phone IRENE Vázquez Primary Care Provider Uday Wallace Unavailable Unavailable Padma Mayfield Encounters Encounter Location Date Provider Diagnosis [facility] [address] [place] [phone] 01/26/2024 Padma Mayfield Plan Of Treatment No Information Progress Notes * Lj PATELDOB:1974 (50 yo M)Acc No.[id number]:01/26/2024 Case Management Patient: Lj CHEEK Provider: Luz Marina Mayfield :1975 A ge:49 Y S ex:Male Date:01/26/2024 Address:[address] [address], [facility] Pcp:IRENE Bañuelos Subjective: * Chief Complaints: * * Medical History: Objective: Assessment: Plan: * Treatment: * Images: Billing Information: * Visit Code: * Procedure Codes: Care Plan Details* * Electronic signature of Jluis Mayfield on 06/02/2025 at 12:21 AM EDT Sign off status: Pending * Provider: Luz Marina Mayfield Date: 01/26/2024 Generated for Judi ng/Faxing/eTransmitting on: 0 06/02/2025 12:21 AM EDT
--- OUTSIDE RECORDS SUMMARY | 2024-02-20 10:15 | XMS_ITS ---
Author Organization [facility] Address [address] [place] [address] Care Team Providers Care Social Security Specialist Name Role Phone IRENE Vzáquez Primary Care Provider Uday Wallace Unavailable Unavailable Padma Mayfield [phone] Encounters Encounter Location Date Provider [facility] [address] [place] [phone] 02/20/2024 Padma Mayfield Plan Of Treatment No Information Progress Notes * Lj PATELDOB:1974 (50 yo M)Acc No.[id number]:02/20/2024 Case Management Patient: jL CHEEK Provider: Luz Marina Mayfield :1975 A ge:49 Y S ex:Male Date:02/20/2024 Address:[address] [address], [facility] Pcp:IRENE Bañuelos Subjective: * Chief Complaints: * * Medical History: Objective: Assessment: Plan: * Treatment: * Images: Billing Information: * Visit Code: * Procedure Codes: Care Plan Details* * Electronic signature of Jluis Mayfield on 06/02/2025 at 12:21 AM EDT Sign off status: Pending * Provider: Luz Marina Mayfield Date: 02/20/2024 Generated for Judi ng/Faxing/eTransmitting on: 0 06/02/2025 12:21 AM EDT
--- OUTSIDE RECORDS SUMMARY | 2024-04-05 10:00 | XMS_ITS ---
Author Organization [facility] Address [address] [place] [address] Care Team Providers Care Manager Outreach Name Role Phone IRENE Vázquez Primary Care Provider Uday Wallace Unavailable Unavailable Padma Mayfield [phone] Encounters Encounter Location Date Provider Diagnosis [facility] [address] [place] [phone] 04/05/2024 Padma Mayfield Plan Of Treatment No Information Progress Notes * Lj PATELDOB:1974 (50 yo M)Acc No.[id number]:04/05/2024 Case Management Patient: Lj CHEEK Provider: Luz Marina Mayfield :1975 A ge:49 Y S ex:Male Date:04/05/2024 Address:[address] [address], [facility] Pcp:IRENE Bañuelos Subjective: * Chief Complaints: * * Medical History: Objective: Assessment: Plan: * Treatment: * Images: Billing Information: * Visit Code: * Procedure Codes: Care Plan Details* * Electronic signature of Jluis Mayfield on 06/02/2025 at 12:22 AM EDT Sign off status: Pending * Provider: Luz Marina Mayfield Date: 0 04/05/2024 Generated for Printi ng/Faxing/eTransmitting on: 0 06/02/2025 12:22 AM EDT
--- OUTSIDE RECORDS SUMMARY | 2025-03-11 09:15 | XMS_ITS ---
Author Organization [facility] Address [address] [place] [address] Care Team Providers Care Reporting Consultant Name Role Phone IRENE Vázquez Primary Care Provider [phone] Uday Wallace Unavailable Unavailable Padma Mayfield Encounters Encounter Location Date Provider Diagnosis [facility] [address] [place] [phone] 03/11/2025 Padma Mayfield Plan Of Treatment No Information Progress Notes * Lj PATELDOB:1974 (50 yo M)Acc No.[id number]:03/11/2025 Case Management Patient: Lj CHEEK Provider: Luz Marina Mayfield :1975 A ge:50 Y S ex:Male Date:03/11/2025 Address:[phone], [facility] Pcp:IRENE Bañuelos Subjective: * Chief Complaints: * * Medical History: Objective: Assessment: Plan: * Treatment: * Images: Billing Information: * Visit Code: * Procedure Codes: Care Plan Details* * Electronic signature of Jluis Mayfield on 06/02/2025 at 12:22 AM EDT Sign off status: Pending * Provider: Luz Marina Mayfield Date: 0 03/11/2025 Generated for Judi ng/Faxing/eTransmitting on: 0 06/02/2025 12:22 AM EDT
--- OUTSIDE RECORDS SUMMARY | 2025-03-21 10:00 | XMS_ITS ---
Author Organization [facility] Address [address] [place] [address] Care Team Providers Care Engineering Document Control Clerk Name Role Phone IRENE Vázquez Primary Care Provider [phone] Uday Wallace Unavailable Unavailable Padma Mayfield Encounters Encounter Location Date Provider Diagnosis [facility] [address] [place] [phone] 03/21/2025 Padma Mayfield Plan Of Treatment No Information Progress Notes * Lj PATELDOB:1974 (50 yo M)Acc No.[id number]:03/21/2025 Case Management Patient: Lj CHEEK Provider: Luz Marina Mayfield :1975 A ge:50 Y S ex:Male Date:03/21/2025 Address:[phone], [facility] Pcp:IRENE Bañuelos Subjective: * Chief Complaints: * * Medical History: Objective: Assessment: Plan: * Treatment: * Images: Billing Information: * Visit Code: * Procedure Codes: Care Plan Details* * Electronic signature of Jluis Mayfield on 06/02/2025 at 12:21 AM EDT Sign off status: Pending * Provider: Luz Marina Mayfield Date: 03/21/2025 Generated for Judi ng/Faxing/eTransmitting on: 0 06/02/2025 12:21 AM EDT
--- NOTE | ~2025-06-01 | CT_ITS ---
CLINICAL HISTORY: LLQ abd pain CT abdomen and pelvis with contrast Comparison: None provided Findings: Mild bibasilar atelectasis and/or scarring. Steatotic change in fat deposition of the liver. Gallbladder is distended and otherwise unremarkable for CT. Pancreas, adrenal glands, and spleen are unremarkable. No hydronephrosis. Mild dilatation of the ureter is nonspecific and may be secondary to bladder outlet obstruction given distention of the imaged bladder. Prostate gland measures 3.6 cm. Small mesenteric and periaortic lymph nodes are likely reactive. No small bowel obstruction. Severe stool burden is present, including the cecum. Wall thickening of the large intestine may reflect colitis, including lower descending colon and imaged sigmoid colon. Imaged appendix is within normal limits (image 38 of series 5). Phleboliths noted. Mild osteoarthritis of the hips. Facet arthropathy is multifocal. Grade 1 anterolisthesis of the L5-S1. Bilateral spondylolysis of the L5. Schmorl's nodes are multifocal. IMPRESSION: 1. Mild dilatation of the ureter is nonspecific may be secondary to bladder outlet obstruction given distention of the urinary bladder. 2. Mild wall thickening of the left distal large intestine is nonspecific. Mild colitis is considered. Otherwise, severe stool burden. 3. No small bowel obstruction. This document has been electronically signed by: Ender Harris MD on 06/02/2025 02:32:06
--- NOTE | 2025-06-02 | ECG_ITS ---
Test Reason : CP Blood Pressure : */* mmHG Vent. Rate : 108 BPM Atrial Rate : 108 BPM P-R Int : 158 ms QRS Dur : 80 ms QT Int : 346 ms P-R-T Axes : 35 -10 11 degrees QTcB Int : 463 ms Sinus tachycardia Minimal voltage criteria for LVH, may be normal variant ( R in aVL ) Borderline ECG No previous ECGs available Referred By: Generic ED Physician Electronically Signed By: ARCADIO GRIFFIN MD
[2025-06-02 00:05] VITALS: BP 153/100; BP 161/114; PULSE 109; PULSE 114; RESP 22; TEMP 37; O2SAT 95; O2SAT 98; BMI 28.3
[2025-06-02 00:08] VITALS: BP 153/100; PULSE 109; RESP 22; TEMP 37; O2SAT 95
[2025-06-02 00:17] LABS: Hematocrit 40.9 % (42.0-52.0); Hemoglobin 14.4 g/dl (14.0-18.0); Imm Gran Abs Auto 0.01 X10*3/uL (0.00-0.03); Imm Gran Pct Auto 0.2 % (0.0-0.4); Lymphocytes Absolute Auto 1.9 X10*3/uL (1.2-4.9); MANUAL DIFF FLAG NO; Mean Corpuscular HGB Conc 35.2 g/dl (31.0-36.0); Mean Corpuscular Hemoglobin 31.6 pg (27.0-33.0); Mean Corpuscular Volume 89.7 fL (80.0-98.0); NRBC Abs Auto 0.000 X10*3/uL (0.0-0.012); NRBC Pct Auto 0.0 /100WBC (0.0-0.2); Platelet Count 211 X10*3/uL (160-400); Red Blood Count 4.56 X10*6/uL (4.60-5.80); White Blood Count 5.5 X10*3/uL (4.8-10.8)
--- NOTE | 2025-06-02 00:18 | ED_ITS ---
HPI - Chest Pain General Chief Complaint: Chest Pain Stated Complaint: Chest pain, hx ETOH Time Seen by Provider: 06/02/25 00:04 Source: patient and EMS Mode of arrival: EMS Limitations: no limitations History of Present Illness ED Provider: Jesse VILCHIS HPI narrative: The patient is a 50-year-old male with a history of alcohol dependency and cocaine abuse presenting to the ED reporting he was drinking this evening when he developed epigastric and left-sided abdominal pain with bloating. The patient denies associated vomiting, diarrhea, fever/chills, cough, recent sick contacts or recent trauma. The patient denies cocaine use or other recreational drug use this evening. The patient appears clinically intoxicated, his ability to provide a reliable HPI is questionable. Related Data Previous Rx's ?Medication ?Instructions ?Recorded ondansetron 4 mg disintegrating 4 mg PO Q6H PRN nausea and 09/17/22 tablet vomiting #14 tabs cyclobenzaprine 10 mg tablet 10 mg PO Q8H #20 tabs 06/18 oxycodone 5 mg tablet 5 mg PO Q6H PRN pain #20 tab s 08/03/24 cyclobenzaprine 10 mg tablet 10 mg PO Q8H #20 tabs ibuprofen 600 mg tablet 600 mg PO Q6H PRN fever or p ain 08/10/24 #30 tabs Allergies Allergy/AdvReac Type Severity Reaction Status Date / Time bee pollen (bee stings) Allergy Nausea and Verified 06/02/25 00:07 Vomiting SEASONAL ALLERGIES Allergy Unknown UNKNOWN Uncoded 04/07/25 12:57 Review of Systems 2 Review of Systems: Yes all other systems are reviewed and are negative [facility] Past Medical History Medical History Alcohol abuse Social History Social History (System 04/07/25 @ 12:57 by Oriana Ruiz) Alcohol intake: current Alcohol intake frequency: 3 or more drinks per day Alcohol type: beer Smoked in Last 30 Days: No Use of substances other than those prescribed or required for medical reasons: Yes Substance Use Type: Crack/Cocaine Advance Directives: No Advance Directives Information Provided: No Physical Exam 2 Vital Signs: Vital Signs: Last Vital Signs Temp 98.6 F 06/02/25 00:08 Pulse 85 06/02/25 03:09 Resp 18 06/02/25 03:09 BP 120/84 06/02/25 03:09 Pulse Ox 92 06/02/25 03:09 O2 Del Method Room Air 06/02/25 03:09 BMI result Body Mass Index 28.3 CONSTITUTIONAL: The patient appears non-toxic, well nourished and in no acute distress. Vital signs as documented. HEAD: Atraumatic, normocephalic. EYES: EOMs grossly intact, pupils equal, conjunctiva clear, no exudate. ENT: Nares patent, no discharge. Airway patent, no audible stridor, visible mucosa is pink and moist without noted lesions. NECK: Trachea is midline, no obvious masses or gross abnormalities. CHEST: Symmetric movement, normal appearance. LUNGS: LS present and CTAB, no w/r/r. Non-labored work of breathing. CARDIAC: Regular Rhythm, S1/S2 appreciated, no murmurs, rubs or gallops. ABDOMEN: Abdomen soft x4 quadrants, positive tenderness to palpation of the left upper and lower quadrants, negative rebound, no palpable masses or organomegaly. Negative CVAT bilaterally. : Deferred. EXTREMITIES: Normal tone, moves all extremities spontaneously without reported pain. No obvious acute injury or deformity noted. NEURO: Alert and oriented x3, CN II-XII appear grossly intact. Cerebellar Functioning grossly intact. No obvious sensory or motor deficits. Speech clear and appropriate. PSYCH: normal affect, appropriate eye contact, fluid speech, with appropriate response to questioning. No reported suicidality or homicidality. SKIN: Warm, dry, color appropriate, normal turgor. No rashes noted. Medications Administered Discontinued Medications Generic Name Dose Route Start Last Admin Trade Name Freq PRN Reason Stop Dose Admin Iohexol 85 ml 06/02/25 01:38 06/02/25 01:40 Iohexol 350 Mg/Ml 100 Ml Infus..Btl IV 06/02/25 01:39 85 ml ONCE ONE Administration Medical Decision Making Medical Decision Making MDM Narrative: 1:29 AM 06/02/2025 (Micky VILCHIS): The patient is a 50-year-old male with a history of alcohol abuse and cocaine use presenting to the ED for evaluation of epigastric and left-sided abdominal pain which began while drinking alcohol this evening, patient denies associated recreational drug use/cocaine use. The patient in the ED appears clinically intoxicated, his ability to provide a reliable HPI is questionable. The patient's exam reveals tenderness of the left upper quadrant and left lower quadrant without rebound. The patient arrives tachycardic, but afebrile. EKG shows sinus tachycardia without ischemia. Troponin is negative. The patient's laboratory evaluation shows no leukocytosis, significant anemia, electrolyte abnormality, or SHERRIE. LFTs are mildly elevated consistent with alcohol use with AST 91 and ALT 147. Patient's ethanol level is 321. Lipase is normal. Patient will be sent for CT abdomen and pelvis to evaluate abdominal tenderness, we will also obtain a urinalysis and UDS. 3:13 AM 06/02/2025 (Micky VILCHIS): The patient's CT shows mild ureteral dilatation which may be secondary to bladder outflow obstruction given distended bladder on CT, there is also mild wall thickening of the left distal large intestine which is nonspecific, question mild colitis. There was significant stool burden, but no evidence of bowel obstruction or other acute intra- abdominal pathology. The patient's vital signs have improved compared to initial presentation, tachycardia and tachypnea has resolved, patient remains afebrile, no hypoxia , hypertension, or hypotension. Given the patient's reassuring laboratory evaluation, and nonspecific CT findings, the patient will be monitored to clinical sobriety and discharged pending sober re-evaluation. 6:16 AM 06/02/2025 (Dr. Aparna Flores, D.O.) patient now clinically sober as evidenced by clear speech and a steady gait. He is able to tolerate oral intake without issue. Plan for discharge and outpatient follow-up. Admission/Observation Consideration of admission/observation: Escalation of care including admission/observation considered Lab Data MDM Lab Attestation statement: I reviewed the patient's lab results. 06/02/25 00:13 06/02/25 00:13 Labs: Lab Results 06/02/25 06/02/25 06/02/25 Range/Units 00:13 01:24 03:34 WBC 5.5 (4.8-10.8) X10*3/uL RBC 4.56 L (4.60-5.80) X10*6/uL Hgb 14.4 (14.0-18.0) g/dl Hct 40.9 L (42.0-52.0) % MCV 89.7 (80.0-98.0) fL MCH 31.6 (27.0-33.0) pg MCHC 35.2 (31.0-36.0) g/dl RDW 12.2 (11.0-16.0) % Plt Count 211 D (160-400) X10*3/uL MPV 9.7 (9.4-12.4) fL Immature Gran % (Auto) 0.2 (0.0-0.4) % Neut % (Auto) 56.4 (45-73) % Lymph % (Auto) 34.2 (20-40) % [place] % (Auto) 6.0 (2-11) % Eos % (Auto) 2.7 (0-4) % Baso % (Auto) 0.5 (0-2) % Lymph # (Auto) 1.9 (1.2-4.9) X10*3/uL [place] # (Auto) 0.3 (0.1-1.2) X10*3/uL Eos # (Auto) 0.2 (0.0-0.4) X10*3/uL Baso # (Auto) 0.0 (0.0-0.2) X10*3/uL Abs Immat Gran (auto) 0.01 (0.00-0.03) X10*3/uL Absolute Neuts (auto) 3.1 (2.0-8.3) x10*3/uL Absolute Nucleated RBC 0.000 (0.0-0.012) X10*3/uL Nucleated RBC % (auto) 0.0 (0.0-0.2) /100WBC Sodium 141 (135-145) mmol/L Potassium 3.9 (3.3-5.1) mmol/L Chloride 104 (96-108) mmol/L Carbon Dioxide 25 (22-29) mmol/L Anion Gap 16 (12-20) BUN 7 L (9-16) mg/dL Creatinine 0.69 (0.5-1.4) mg/dL Estim Creat Clear Calc 118.6 Estimated GFR > 60 Random Glucose 106 (60-115) mg/dL Calcium 9.0 D (8.4-10.2) mg/dL Total Bilirubin 0.4 (0.0-1.0) mg/dL AST 91 H (5-37) U/L ALT 147 H (0-40) U/L Alkaline Phosphatase 86 (39-117) U/L Troponin I High Sens 6.1 D 6.3 (<3.5-35.0) ng/L Total Protein 8.0 (6.5-8.0) g/dL Albumin 4.9 (3.5-5.0) g/dL Lipase 28 (8-78) U/L Urine Color Yellow Urine Appearance Clear Urine pH 6.5 (5.0-9.0) Ur Specific [place] <= 1.005 (1.005-1.025) Urine Protein Negative (Neg-Trace) mg/dL Urine Glucose (UA) Negative (Negative) mg/dL Urine Ketones Negative (Negative) mg/dL Urine Blood Moderate (2+) H (Negative) Urine Nitrite Negative (Negative) Ur Leukocyte Esterase Negative (Negative) Urine RBC 0-2 (0-2) /HPF Urine WBC 0-5 (0-5) /HPF Ur Squamous Epith Cells 0-2 (0-2) /HPF Urine Bacteria None Seen (None Seen) Hyaline Casts 0-2 (0-2) /LPF Urine Opiates Screen Not Detected (Not Detect) Ur Buprenorphine Scrn Not Detected (Not Detect) ng/mL Ur Oxycodone Screen Not Detected (Not Detect) ng/mL Urine Methadone Screen Not Detected (Not Detect) ng/mL Urine Fentanyl Screen Not Detected (Not Detect) Ur Barbiturates Screen Not Detected (Not Detect) Ur Phencyclidine Scrn Not Detected (Not Detect) Ur Amphetamines Screen Not Detected (Not Detect) U Benzodiazepines Scrn Not Detected (Not Detect) Urine Cocaine Screen POSITIVE H (Not Detect) U Marijuana (THC) Screen Not Detected (Not Detect) Ethyl Alcohol 321 H* mg/dL Independent Interpretation I performed an independent interpretation of an: EKG (EKG shows sinus tachycardia with a rate of 108, no evidence of acute ischemia, no ST elevation, no ectopy. QTC 463. No old for comparison.) Radiology Impression Discussion of test interpretation with radiology: I have reviewed the radiologist's reading. Radiologist Impression: CT abdomen and pelvis with contrast Comparison: None provided Findings: Mild bibasilar atelectasis and/or scarring. Steatotic change in fat deposition of the liver. Gallbladder is distended and otherwise unremarkable for CT. Pancreas, adrenal glands, and spleen are unremarkable. No hydronephrosis. Mild dilatation of the ureter is nonspecific and may be secondary to bladder outlet obstruction given distention of the imaged bladder. Prostate gland measures 3.6 cm. Small mesenteric and periaortic lymph nodes are likely reactive. No small bowel obstruction. Severe stool burden is present, including the cecum. Wall thickening of the large intestine may reflect colitis, including lower descending colon and imaged sigmoid colon. Imaged appendix is within normal limits (image 38 of series 5). Phleboliths noted. Mild osteoarthritis of the hips. Facet arthropathy is multifocal. Grade 1 anterolisthesis of the L5-S1. Bilateral spondylolysis of the L5. Schmorl's nodes are multifocal. IMPRESSION: 1. Mild dilatation of the ureter is nonspecific may be secondary to bladder outlet obstruction given distention of the urinary bladder. 2. Mild wall thickening of the left distal large intestine is nonspecific. Mild colitis is considered. Otherwise, severe stool burden. 3. No small bowel obstruction. This document has been electronically signed by: Ender Harris MD on 06/02/2025 02:32:06 External Record Review External record reviewed: Outpatient record and Prior outpatient labs Discharge Plan Discharge Clinical Impression: Atypical chest pain, Colitis Patient Disposition: Home, Self-Care Instructions: Cocaine Use Disorder (ED), Alcohol Intoxication (ED), Noncardiac Chest Pain (ED), Colitis (ED) Additional Instructions: Thank you for choosing [facility]'s Emergency Department for your care today. At this time there is no indication for admission to the hospital or continued ED observation, and it is safe to discharge you home. Your pain today was not caused by any infectious, cardiac, metabolic, or other dangerous cause. Your CT of your abdomen does show evidence of inflammation of your colon which may be causing your abdominal pain. Your alcohol and cocaine abuse may have contributed to your symptoms. Please do not use recreational drugs and do not drink alcohol in excess as this is not generally good for your health and can put you at an increased risk for otherwise avoidable injury and health ailments. Failure to decrease your alcohol consumption will put you at increased risk for permanent liver disease and a decreased quality of life. Abuse of cocaine put you at an increased risk for chest pain and sudden cardiac . Please utilize all available personal and community resources to reduce your alcohol use and stop your recreational drug use. Please follow up with your primary care physician for re-evaluation, additional management of your symptoms, and continued preventative care. If you do not have a primary care physician, please call the [facility] at [phone] to establish a new primary care physician. While waiting to establish your new primary care physician, you can call our Walk-in Care Clinic at [phone] for non-emergency needs. Please return to the emergency department if you develop a severe or sudden change in your symptoms, a fever over 100.4 that does not improve with Tylenol or Ibuprofen, recurrent vomiting, or any other new or worsening symptoms or concerns. Prescriptions: No Action ondansetron 4 mg tablet,disintegrating 4 mg PO Q6H PRN (Reason: nausea and vomiting) Qty: 14 0RF cyclobenzaprine 10 mg tablet 10 mg PO Q8H Qty: 20 0RF ibuprofen 600 mg tablet 600 mg PO Q6H PRN (Reason: fever or pain) Qty: 30 0RF cyclobenzaprine 10 mg tablet 10 mg PO Q8H Qty: 20 0RF oxycodone 5 mg tablet 5 mg PO Q6H PRN (Reason: pain) Qty: 20 0RF Rx Instructions: Partial Fill upon patient request. Referrals: Calvin Ayoub MD [Primary Care Provider, Medical] Clinical Impression: Colitis; Atypical chest pain Print Language: Sinhala
--- OUTSIDE RECORDS SUMMARY | 2025-06-02 00:22 | XMS_ITS | Clinical Summary ---
Author Organization [facility] Address [address] [place] [address] Care Team Providers Care Brazing Machine Setter Name Role Phone Unavailable Primary [...] Flexible Sigmoidoscopy 01/16/2020 Hypertension Screening (#1) 05/07/2023 Alcohol and Drug Screen 09/25/2024 Depression Annual Screen 09/25/2024 Imm-Pneumococcal 50+ (1 of 1 - PCV) 2025 Imm-Zoster, Recombinant (1 of 2) 2025 [id number] (1 - season) 2025 Imm-Influenza (#1) 2025 Insurance [place] [facility] DENTAL
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
[2025-06-02 00:32] LABS: Alanine Aminotransferase 147 U/L (0-40); Albumin Level 4.9 g/dL (3.5-5.0); Alkaline Phosphatase 86 U/L (39-117); Anion Gap 16 (12-20); Aspartate Amino Transferase 91 U/L (5-37); Blood Urea Nitrogen 7 mg/dL (9-16); Calcium 9.0 mg/dL (8.4-10.2); Carbon Dioxide 25 mmol/L (22-29); Chloride 104 mmol/L (96-108); Creatinine Clr Calc Pharmacy 118.6; Estimated Glomerular Filt Rate > 60; Lipase 28 U/L (8-78); Potassium 3.9 mmol/L (3.3-5.1); Sodium 141 mmol/L (135-145); Total Protein 8.0 g/dL (6.5-8.0)
[2025-06-02 00:36] LABS: Troponin-I High Sensitivity 6.1 ng/L (<3.5-35.0)
[2025-06-02 01:19] VITALS: BP 139/92; PULSE 105; RESP 15; O2SAT 96
[2025-06-02 01:31] LABS: Appearance Urine Clear; Glucose Urine UA Negative (Negative); PH 6.5 (5.0-9.0); Specific Gravity - Urine <= 1.005 (1.005-1.025); UMIC TRIGGER UACC YES
[2025-06-02] MEDS: iohexoL 350 MG/ML 100 ML INFUS..BTL 85 ML IV (01:40)
[2025-06-02 01:48] LABS: Cannabinoid Screen Urine Not Detected (Not Detect)
[2025-06-02 03:09] VITALS: BP 120/84; PULSE 85; RESP 18; O2SAT 92
[2025-06-02 03:57] LABS: Troponin-I High Sensitivity 6.3 ng/L (<3.5-35.0)
[2025-06-02 06:25] VITALS: BP 128/86; PULSE 94; RESP 18; TEMP 36.8; O2SAT 97
[2025-06-02 06:44] VITALS: BP 128/86; PULSE 94; RESP 18; TEMP 36.8; O2SAT 97
== END 2025-06-02 06:56 | disposition home or self-care (01) ==
PROVIDERS: Physician Assistant; Emergency Provider Emergency Medicine; PCP Pediatrics
DX: R07.89 Other chest pain (principal); K52.9 Noninfective gastroenteritis and colitis, unspecified; R14.0 Abdominal distension (gaseous); R10.13 Epigastric pain; F14.90 Cocaine use, unspecified, uncomplicated; F10.90 Alcohol use, unspecified, uncomplicated; Y90.8 Blood alcohol level of 240 mg/100 ml or more; Z79.899 Other long term (current) drug therapy
CPT/HCPCS: 36415; 74177; 80053; 80307; 81001; 83690; 84484; 85025; 93005; 99284; 99285; Q9967

== ENCOUNTER → 2025-06-02 00:05 | Outpatient (BNV) | payer OTHER, SELFPAY | PROVIDERS: Emergency Provider Emergency Medicine; PCP Pediatrics; Visit Provider Internal Medicine Cardiovascular Disease | DX: R00.0 Tachycardia, unspecified (principal) | CPT/HCPCS: 93010 ==

== ENCOUNTER → 2025-06-02 00:57 | Outpatient (BNV) | payer OTHER, SELFPAY | PROVIDERS: Emergency Provider Emergency Medicine; PCP Pediatrics; Visit Provider Radiology Neuroradiology | DX: R10.32 Left lower quadrant pain (principal) | CPT/HCPCS: 74177 ==

== ENCOUNTER 2025-08-13 10:33 | Emergency (ER) | payer OTHER, SELFPAY ==
--- OUTSIDE RECORDS SUMMARY | 2024-02-20 09:15 | XMS_ITS ---
Author Organization [facility] Address [address] [place] [address] Care Team Providers Care Machine Cloth Examiner Name Role Phone IRENE Vázquez Primary Care Provider Uday Wallace Unavailable Unavailable Chaparro Padma Goff Encounters Encounter Location Date Provider Diagnosis [facility] [address] [place] [phone] 02/20/2024 Padma Mayfield Plan Of Treatment No Information Progress Notes * Lj PATELDOB:1974 (50 yo M)Acc No.[id number]:02/20/2024 Case Management Patient: Lj CHEEK Provider: Luz Marina Mayfield :1975 A ge:49 Y S ex:Male Date:02/20/2024 Address:[phone], [facility] Pcp:IRENE Bañuelos Subjective: * Chief Complaints: * * Medical History: Objective: Assessment: Plan: * Treatment: * Images: Billing Information: * Visit Code: * Procedure Codes: Care Plan Details* * Electronic signature of Jluis Mayfield on 08/13/2025 at 09:39 PM EST Sign off status: Pending * Provider: Luz Marina Mayfield Date: 0 02/20/2024 Generated for Printi ng/Faxing/eTransmitting on: 1 10/13/2024 09:39 PM EST
--- OUTSIDE RECORDS SUMMARY | 2024-04-05 09:00 | XMS_ITS ---
Author Organization [facility] Address [address] [place] [address] Care Team Providers Care Waxer Tender Name Role Phone IRENE Vázquez Primary Care Provider Uday Wallace Unavailable Unavailable Chaparro Padma Goff [phone] Encounters Encounter Location Date Provider [facility] [address] [place] [phone] 04/05/2024 Padma Mayfield Plan Of Treatment No Information Progress Notes * Lj PATELDOB:1974 (50 yo M)Acc No.[id number]:04/05/2024 Case Management Patient: Lj CHEEK Provider: Luz Marina Mayfield :1975 A ge:49 Y S ex:Male Date:04/05/2024 Address:[address] [address], [facility] Pcp:IRENE Bañuelos Subjective: * Chief Complaints: * * Medical History: Objective: Assessment: Plan: * Treatment: * Images: Billing Information: * Visit Code: * Procedure Codes: Care Plan Details* * Electronic signature of Jluis Mayfield on 08/13/2025 at 09:38 PM EST Sign off status: Pending * Provider: Luz Marina Mayfield Date: 0 04/05/2024 Generated for Printi ng/Faxing/eTransmitting on: 1 10/13/2024 09:38 PM EST
--- OUTSIDE RECORDS SUMMARY | 2025-03-11 08:15 | XMS_ITS ---
Author Organization [facility] Address [address] [place] [address] Care Team Providers Care Acetone Button Paster Name Role Phone IRENE Vázquez Primary Care Provider [phone] Uday Wallace Unavailable Unavailable Chaparro Padma Goff Encounters Encounter Location Date Provider Diagnosis [facility] [address] [place] [phone] 03/11/2025 Padma Mayfield Plan Of Treatment No Information Progress Notes * Lj PATELDOB:1974 (50 yo M)Acc No.[id number]:03/11/2025 Case Management Patient: Lj CHEEK Provider: Lu zMarina Mayfield :1975 A ge:50 Y S ex:Male Date:03/11/2025 Address:[address] [address], [facility] Pcp:IRENE Bañuelos Subjective: * Chief Complaints: * * Medical History: Objective: Assessment: Plan: * Treatment: * Images: Billing Information: * Visit Code: * Procedure Codes: Care Plan Details* * Electronic signature of Jluis Mayfield on 08/13/2025 at 09:38 PM EST Sign off status: Pending * Provider: Luz Marina Mayfield Date: 0 03/11/2025 Generated for Printi ng/Faxing/eTransmitting on: 1 10/13/2024 09:38 PM EST
--- OUTSIDE RECORDS SUMMARY | 2025-03-21 09:00 | XMS_ITS ---
Author Organization [facility] Address [address] [place] [address] Care Team Providers Care Alternative Financing Specialist Name Role Phone IRENE Vázquez Primary Care Provider Uday Wallace Unavailable Unavailable Chaparro Padma Goff [phone] Encounters Encounter Location Date Provider Diagnosis [facility] [address] [place] [phone] 03/21/2025 Padma Mayfield Plan Of Treatment No Information Progress Notes * Lj PATELDOB:1974 (50 yo M)Acc No.[id number]:03/21/2025 Case Management Patient: Lj CHEEK Provider: Luz Marina Mayfield :1975 A ge:50 Y S ex:Male Date:03/21/2025 Address:[address] [address], [facility] Pcp:IRENE Bañuelos Subjective: * Chief Complaints: * * Medical History: Objective: Assessment: Plan: * Treatment: * Images: Billing Information: * Visit Code: * Procedure Codes: Care Plan Details* * Electronic signature of Jluis Mayfield on 08/13/2025 at 09:39 PM EST Sign off status: Pending * Provider: Luz Marina Mayfield Date: 0 03/21/2025 Generated for Printi ng/Faxing/eTransmitting on: 1 10/13/2024 09:39 PM EST
--- OUTSIDE RECORDS SUMMARY | 2025-06-07 16:00 | XMS_ITS ---
Author Organization [facility] Address [address] [place] [address] Care Team Providers Care Tax Adjuster Name Role Phone IRENE Vázquez Primary Care Provider Uday Wallace Unavailable Unavailable Migration, Provider Unavailable Unavailable REASON FOR VISIT Multum To Medispan Conversion Encounter Medications Medication SIG (Take, Route, Frequency, Duration) Notes Start Date End Date Status traZODone HCl 100 MG 1 tab(s) orally q h s for 30 day(s) Not-Taking Encounters Encounter Location Date Provider Diagnosis [id number] [place] [address] 06/07/2025 Provider Migration Plan Of Treatment No Information Progress Notes * Lj PATELDOB:1974 (50 yo M)Acc No.[id number]:06/07/2025 Patient: Lj CHEEK Provider: :1975 A ge:50 Y S ex:Male Date:06/07/2025 Address:[address] [id number], [place], [place] Pcp:IRENE Bañuelos Subjective: * Chief Complaints: * 1 . Multum To Medispan Conversion Encounter. * Medical History: * Medications: N ot-Taking/PRN traZODone HCl 100 MG Tablet 1 tab(s) orally q hs Objective: * Vitals: Assessment: Plan: * Treatment: * Images: Billing Information: * Visit Code: * Procedure Codes: * Electronic signature of Prov ider Migration on 08/13/2025 at 09:39 PM EST Sign off status: Pending * Provider: Date: 0 06/07/2025 Generated for Shruthi bailey/Ya/Tricia on: 1 10/13/2024 09:39 PM EST
--- NOTE | ~2025-08-13 | CT_ITS ---
EXAMINATION: CT ABDOMEN AND PELVIS WITH CONTRAST CLINICAL INFORMATION: Left lower quadrant abdominal pain COMPARISON: CT chest 06/02/2025 TECHNIQUE: Multidetector volumetric images were obtained from the superior aspect of the liver through the pubic symphysis following administration 85 mL of Omnipaque 350 intravenous contrast. Sagittal and coronal reformatted images were obtained on the technologist's workstation. Oral contrast: No This CT examination was performed using dose optimization techniques as appropriate, variously including the following: *Automated exposure control *Adjustment of mA and/or kV according to patient size (this includes techniques or standardized protocols for targeted exams where dose is matched to indication/reason for exam; i.e. extremities or head) *Use of iterative reconstruction technique FINDINGS: LUNG BASES: The visualized lung bases are unremarkable. LIVER, GALLBLADDER, AND BILIARY TREE: No suspicious hepatic lesion. No biliary duct dilatation.. Gallbladder is nondistended. No radiopaque gallstones. Mild gallbladder wall prominence, could be technical distention. No significant surrounding inflammatory changes. CBD caliber appears within normal limits. PANCREAS: Unremarkable. SPLEEN: Unremarkable. ADRENAL GLANDS: Unremarkable. KIDNEYS AND URETERS: Symmetric enhancement. No suspicious lesions. No nephrolithiasis. No hydronephrosis. BLADDER: Unremarkable. GASTROINTESTINAL TRACT: Stomach is nondistended. Nonobstructive bowel gas pattern. No dilated small bowel loops. Moderate-large stool burden in the colon. There is diverticulosis of the descending and sigmoid colon. Pericolonic inflammatory changes along the descending colon. Findings consistent with diverticulitis. There is haziness and stranding/inflammatory changes in the pelvis, including subjacent to the sigmoid colon. Wall thickening of portion of the sigmoid sigmoid colon, could reflect colitis/diverticulitis.. No free air is seen. No organized fluid collections. Appendix is normal. ABDOMINAL WALL: No significant hernia is appreciated. LYMPH NODES: No pathologically enlarged lymph nodes VASCULAR: Normal caliber aorta PELVIC VISCERA: Within normal limits OSSEOUS STRUCTURES: No acute or suspicious osseous abnormality CT/CT abdomen pelvis w IV con IMPRESSION: 1. Diverticulosis of the descending colon, with a subjacent inflammatory changes consistent with diverticulitis. Diverticulosis of the sigmoid colon, with wall thickening, hazy stranding in the pelvis could reflect colitis or diverticulitis. No organized fluid collection or abscess is seen. 2. Gallbladder is nondistended. Apparent wall prominence of the gallbladder, could be related to lack of distention. If this clinical concern for cholecystitis, recommend ultrasound. Fleischner guidelines were followed. Electronically signed by: Byron Mendes MD 08/13/2025 01:01 PM [facility]
[2025-08-13 10:36] VITALS: BP 168/98; PULSE 113; O2SAT 96
[2025-08-13 10:44] VITALS: BP 150/99; PULSE 98; RESP 18; TEMP 36.4; O2SAT 98; BMI 29.0
--- NOTE | 2025-08-13 11:17 | ED.ABDPAIN ---
HPI - Abdominal Pain General Chief Complaint: Abdominal Pain Stated Complaint: ABD PAIN x 3D Time Seen by Provider: 08/13/25 11:08 Source: patient Mode of arrival: ambulatory Limitations: no limitations History of Present Illness ED Provider: JANY RUSSO PA-C HPI narrative: 50 year old male presents to the ED today for evaluation of abdominal pain x3 days. Pain is localized to left abdomen. No radiation. Endorses 1 episode of vomiting this morning. Tolerating PO. Admits to inhaling cocaine occasionally, last used yesterday. No hx IVDU. Reports consuming 2-3 beers/week. Denies history of abdominal surgeries. Denies fever, chills, diarrhea, constipation, urinary sx. Related Data Previous Rx's ?Medication ?Instructions ?Recorded ondansetron 4 mg disintegrating 4 mg PO Q6H PRN nausea and 09/17/22 tablet vomiting #14 tabs cyclobenzaprine 10 mg tablet 10 mg PO Q8H #20 tabs 08/03/24 oxycodone 5 mg tablet 5 mg PO Q6H PRN pain #20 tabs 08/03/24 cyclobenzaprine 10 mg tablet 10 mg PO Q8H #20 tabs 08/10/24 ibuprofen 600 mg tablet 600 mg PO Q6H PRN fever or pain 08/10/24 #30 tabs amoxicillin 875 mg-potassium 1 tab PO Q12H 10 days #20 tabs 08/13/25 clavulanate 125 mg tablet naproxen 500 mg tablet 500 mg PO BID PRN pain (scale 08/13/25 score 4-6) #20 tabs Allergies Allergy/AdvReac Type Severity Reaction Status Date / Time bee pollen (bee stings) Allergy Nausea and Verified 08/13/25 10:44 Vomiting SEASONAL ALLERGIES Allergy Unknown UNKNOWN Uncoded 04/07/25 12:57 Review of Systems Review of Systems Yes all other systems are reviewed and are negative PMFSH Past Medical History Attestation statement: The following information was validated with the patient. Source: old records reviewed and nursing notes reviewed Medical History Alcohol abuse Social History Social History Alcohol intake: current Alcohol intake frequency: 3 or more drinks per day Alcohol type: beer Substance Use Type: Crack/Cocaine Physical Exam ED Vital Signs: Vital Signs - 24 hr 08/13/25 10:44 08/13/25 12:00 08/13/25 13:22 Temperature 97.6 F 97.6 F Pulse Rate 98 72 70 Respiratory Rate 18 18 16 Blood Pressure 150/99 H 125/84 128/86 Pulse Oximetry 98 99 98 Oxygen Delivery Method Room Air Room Air Room Air 08/13/25 14:07 Temperature 97.6 F Pulse Rate 70 Respiratory Rate 16 Blood Pressure 128/86 Pulse Oximetry 98 Oxygen Delivery Method Room Air BMI result Body Mass Index 29.0 vital signs stable General: Well appearing, in no acute distress. Skin: Warm, dry, intact. No rashes or lesions. Head: Normocephalic, atraumatic. EENT: Hearing is intact b/l. Conjunctiva clear. PERRLA. EOM intact. Moist mucous membranes.? Neck: Supple without LAD Cardiac: Chest wall symmetric. RRR Lungs: Normal respiratory effort without accessory muscle use. CTA bilaterally Abdomen: Soft, nondistended, tender to palpation of both left upper and left lower quadrants without rebound or guarding. No palpable masses. Active bowel sounds x4. no cvat. Back: No midline spinous or paraspinal tenderness. No step off deformity. Ext: Upper and lower extremities atraumatic, without tenderness, deformity, swelling or erythema. Full ROM throughout Neuro: AOx3. Normal speech. Ambulating with steady gait. Course Course Course Narrative: No leukocytosis. No anemia, H and H stable. Chemistry without acute electrolyte abnormality requiring intervention. BUN mildly elevated to 22, normal creatinine. Liver function around baseline. Lipase WNL. Urine without infection. Negative COVID, flu. CT abdomen showing uncomplicated diverticulitis. > discussed all workup results with patient. He is tolerating jello. Plan to discharge home on Augmentin for treatment of diverticulitis. Patient has remained stable throughout ED visit today. Discussed worrisome signs and symptoms and when to return to the ED. All questions answered at this time. Patient is agreeable with disposition and stable for discharge. Medical Decision Making Medical Decision Making MDM Narrative: 50 year old male presents to the ED today for evaluation of abdominal pain x3 days. hypertensive, vitals are otherwise wnl. he is well appearing, and in NAD. on exam, abdomen is soft, nondistended, tender to palpation of both left upper and left lower quadrants without rebound or guarding. No palpable masses. Active bowel sounds x4. no cvat. Differential diagnoses: atypical appendicitis, diverticulitis, diverticulosis, epiploic appendagitis, constipation Abdominal exam without peritoneal signs. No evidence of acute abdomen at this time. Well appearing. Low suspicion for acute hepatobiliary disease (including acute cholecystitis), acute infectious processes (pneumonia, hepatitis, pyelonephritis), vascular catastrophe, bowel obstruction or viscus perforation, testicular torsion, orchitis, epidydymitis. Presentation not consistent with other acute, emergent causes of abdominal pain at this time. Plan: labs, UA, CT AP, pain control, fluids, re-eval Differential Diagnosis Differential Diagnoses: The differential diagnosis associated with the presentation includes as above. Admission/Observation not indicated. Lab Data MDM Lab Attestation statement: I reviewed the patient's lab results. as above. 08/13/25 11:15 08/13/25 11:15 Labs: Lab Results 08/13/25 08/13/25 Range/Units 11:15 11:17 WBC 8.6 (4.8-10.8) X10*3/uL RBC 4.55 L (4.60-5.80) X10*6/uL Hgb 14.2 (14.0-18.0) g/dl Hct 42.3 (42.0-52.0) % MCV 93.0 (80.0-98.0) fL MCH 31.2 (27.0-33.0) pg MCHC 33.6 (31.0-36.0) g/dl RDW 12.0 (11.0-16.0) % Plt Count 222 (160-400) X10*3/uL MPV 10.4 (9.4-12.4) fL Immature Gran % (Auto) 0.4 (0.0-0.4) % Neut % (Auto) 73.9 H (45-73) % Lymph % (Auto) 14.6 L (20-40) % Grimes % (Auto) 8.9 (2-11) % Eos % (Auto) 1.8 (0-4) % Baso % (Auto) 0.4 (0-2) % Lymph # (Auto) 1.3 (1.2-4.9) X10*3/uL Grimes # (Auto) 0.8 (0.1-1.2) X10*3/uL Eos # (Auto) 0.2 (0.0-0.4) X10*3/uL Baso # (Auto) 0.0 (0.0-0.2) X10*3/uL Abs Immat Gran (auto) 0.03 (0.00-0.03) X10*3/uL Absolute Neuts (auto) 6.3 (2.0-8.3) x10*3/uL Absolute Nucleated RBC 0.000 (0.0-0.012) X10*3/uL Nucleated RBC % (auto) 0.0 (0.0-0.2) /100WBC Sodium 139 (135-145) mmol/L Potassium 4.5 (3.3-5.1) mmol/L Chloride 108 (96-108) mmol/L Carbon Dioxide 23 (22-29) mmol/L Anion Gap 13 (12-20) BUN 22 H (9-16) mg/dL Creatinine 0.85 (0.5-1.4) mg/dL Estim Creat Clear Calc 100.7 Estimated GFR > 60 Random Glucose 88 (60-115) mg/dL Calcium 9.7 D (8.4-10.2) mg/dL Total Bilirubin 0.4 (0.0-1.0) mg/dL AST 32 (5-37) U/L ALT 62 H (0-40) U/L Alkaline Phosphatase 82 (39-117) U/L Total Protein 8.2 H (6.5-8.0) g/dL Albumin 4.7 (3.5-5.0) g/dL Lipase 25 (8-78) U/L Urine Color Yellow Urine Appearance Clear Urine pH 5.5 (5.0-9.0) Ur Specific Hoskins 1.020 (1.005-1.025) Urine Protein Negative (Neg-Trace) mg/dL Urine Glucose (UA) Negative (Negative) mg/dL Urine Ketones Negative (Negative) mg/dL Urine Blood Negative (Negative) Urine Nitrite Negative (Negative) Ur Leukocyte Esterase Negative (Negative) COVID-19 (OMAR) Negative (Negative) COVID-19 Clin Com See Note Influenza Type A (JERICA) Negative (Negative) Influenza Type B (JERICA) Negative (Negative) Influenza A & B Note See Note Independent Interpretation I performed an independent interpretation of an: CT Scan Interpretation: ct a/p without obstruction Radiology Impression Discussion of test interpretation with radiology: I have reviewed the radiologist's reading. Radiologist Impression: Procedure(s): CT abdomen pelvis w IV con Accession Number(s): [id number] cc: Physician,None ; Jany Russo~ Report Number: [id number]: Total DLP = 0.00 mGy-cm Reason for Exam: LLQ abd pain EXAMINATION: CT ABDOMEN AND PELVIS WITH CONTRAST CLINICAL INFORMATION: Left lower quadrant abdominal pain COMPARISON: CT chest 06/02/2025 TECHNIQUE: Multidetector volumetric images were obtained from the superior aspect of the liver through the pubic symphysis following administration 85 mL of Omnipaque 350 intravenous contrast. Sagittal and coronal reformatted images were obtained on the technologist's workstation. Oral contrast: No This CT examination was performed using dose optimization techniques as appropriate, variously including the following: *Automated exposure control *Adjustment of mA and/or kV according to patient size (this includes techniques or standardized protocols for targeted exams where dose is matched to indication/reason for exam; i.e. extremities or head) *Use of iterative reconstruction technique FINDINGS: LUNG BASES: The visualized lung bases are unremarkable. LIVER, GALLBLADDER, AND BILIARY TREE: No suspicious hepatic lesion. No biliary duct dilatation.. Gallbladder is nondistended. No radiopaque gallstones. Mild gallbladder wall prominence, could be technical distention. No significant surrounding inflammatory changes. CBD caliber appears within normal limits. PANCREAS: Unremarkable. SPLEEN: Unremarkable. ADRENAL GLANDS: Unremarkable. KIDNEYS AND URETERS: Symmetric enhancement. No suspicious lesions. No nephrolithiasis. No hydronephrosis. BLADDER: Unremarkable. GASTROINTESTINAL TRACT: Stomach is nondistended. Nonobstructive bowel gas pattern. No dilated small bowel loops. Moderate-large stool burden in the colon. There is diverticulosis of the descending and sigmoid colon. Pericolonic inflammatory changes along the descending colon. Findings consistent with diverticulitis. There is haziness and stranding/inflammatory changes in the pelvis, including subjacent to the sigmoid colon. Wall thickening of portion of the sigmoid sigmoid colon, could reflect colitis/diverticulitis.. No free air is seen. No organized fluid collections. Appendix is normal. ABDOMINAL WALL: No significant hernia is appreciated. LYMPH NODES: No pathologically enlarged lymph nodes VASCULAR: Normal caliber aorta PELVIC VISCERA: Within normal limits OSSEOUS STRUCTURES: No acute or suspicious osseous abnormality CT/CT abdomen pelvis w IV con IMPRESSION: 1. Diverticulosis of the descending colon, with a subjacent inflammatory changes consistent with diverticulitis. Diverticulosis of the sigmoid colon, with wall thickening, hazy stranding in the pelvis could reflect colitis or diverticulitis. No organized fluid collection or abscess is seen. 2. Gallbladder is nondistended. Apparent wall prominence of the gallbladder, could be related to lack of distention. If this clinical concern for cholecystitis, recommend ultrasound. Fleischner guidelines were followed. Electronically signed by: Byron Mendes MD 08/13/2025 01:01 PM [facility] [place] External Record Review External record reviewed: Inpatient record Prescription Management I considered prescription management with: Antibiotic Social Determinants Patient?s care significantly limited by Social Determinants of Health including: Other Social Determinant of Health Medications Administered Discontinued Medications Generic Name Dose Route Start Last Admin Trade Name Freq PRN Reason Stop Dose Admin Sodium Chloride 1,000 mls @ 999 mls/hr 08/13/25 11:30 08/13/25 13:21 Ns IV 08/13/25 12:30 Infused .Q1H1M SUDHA Infusion Iohexol 85 ml 08/13/25 12:34 08/13/25 12:35 Iohexol 350 Mg/Ml 100 Ml Infus..Btl IV 08/13/25 12:35 85 ml ONCE ONE Administration Ketorolac Tromethamine 15 mg 08/13/25 11:27 08/13/25 11:56 Ketorolac Tromethamine 15 Mg/Ml Vial IVPUSH 08/13/25 11:28 15 mg ONCE ONE Administration Ketorolac Tromethamine 15 mg 08/13/25 13:33 08/13/25 14:02 Ketorolac Tromethamine 15 Mg/Ml Vial IVPUSH 08/13/25 13:34 15 mg ONCE ONE Administration Critical Care Time Critical Care Time Critical Care Time: No Discharge Plan Discharge Clinical Impression: Diverticulitis Patient Disposition: Home, Self-Care Instructions: Diverticulitis (ED), Diverticulitis Diet (ED) Additional Instructions: You were evaluated in the ED today for left sided abdominal pain. Your blood work is reassuring. The CT scan of your abdomen shows diverticulitis. See home care instructions. I am sending Augmentin to your pharmacy. On Augmentin, softer bowel movements are to be expected. Call your provider if you move your bowels more than 4 times a day, your bowel movements are almost all liquid, or you get a rash.? I am sending naproxen for pain control. Return with any new/worsening symptoms. In the case of an emergency call 911. Prescriptions: New naproxen 500 mg tablet 500 mg PO BID PRN (Reason: pain (scale score 4-6)) Qty: 20 0RF amoxicillin-pot clavulanate 875-125 mg tablet 1 tab PO Q12H 10 Days Qty: 20 0RF No Action ondansetron 4 mg tablet,disintegrating 4 mg PO Q6H PRN (Reason: nausea and vomiting) Qty: 14 0RF cyclobenzaprine 10 mg tablet 10 mg PO Q8H Qty: 20 0RF ibuprofen 600 mg tablet 600 mg PO Q6H PRN (Reason: fever or pain) Qty: 30 0RF cyclobenzaprine 10 mg tablet 10 mg PO Q8H Qty: 20 0RF oxycodone 5 mg tablet 5 mg PO Q6H PRN (Reason: pain) Qty: 20 0RF Rx Instructions: Partial Fill upon patient request. Referrals: Physician,None [Primary Care Provider, Medical] Interventions: ED Discharge Assessment Last Done: 08/13/25 14:07 Discharge Date/Time: 08/13/25 14:08 Print Language: Austrian
[2025-08-13 11:23] LABS: MANUAL DIFF FLAG NO
[2025-08-13 11:26] LABS: Appearance Urine Clear; Glucose Urine UA Negative (Negative); PH 5.5 (5.0-9.0); Specific Gravity - Urine 1.020 (1.005-1.025)
[2025-08-13 11:31] LABS: Hematocrit 42.3 % (42.0-52.0); Hemoglobin 14.2 g/dl (14.0-18.0); Imm Gran Abs Auto 0.03 X10*3/uL (0.00-0.03); Imm Gran Pct Auto 0.4 % (0.0-0.4); Lymphocytes Absolute Auto 1.3 X10*3/uL (1.2-4.9); Mean Corpuscular HGB Conc 33.6 g/dl (31.0-36.0); Mean Corpuscular Hemoglobin 31.2 pg (27.0-33.0); Mean Corpuscular Volume 93.0 fL (80.0-98.0); NRBC Abs Auto 0.000 X10*3/uL (0.0-0.012); NRBC Pct Auto 0.0 /100WBC (0.0-0.2); Platelet Count 222 X10*3/uL (160-400); Red Blood Count 4.55 X10*6/uL (4.60-5.80); White Blood Count 8.6 X10*3/uL (4.8-10.8)
[2025-08-13 11:41] LABS: COVID-19 Test Negative (Negative); IDNOW Serial# 55D5AD1C
[2025-08-13 11:43] LABS: IDNOW Serial# 58CA691E; Influenza B2 Negative (Negative)
[2025-08-13 11:52] LABS: Alanine Aminotransferase 62 U/L (0-40); Albumin Level 4.7 g/dL (3.5-5.0); Alkaline Phosphatase 82 U/L (39-117); Anion Gap 13 (12-20); Aspartate Amino Transferase 32 U/L (5-37); Blood Urea Nitrogen 22 mg/dL (9-16); Calcium 9.7 mg/dL (8.4-10.2); Carbon Dioxide 23 mmol/L (22-29); Chloride 108 mmol/L (96-108); Creatinine Clr Calc Pharmacy 100.7; Estimated Glomerular Filt Rate > 60; Lipase 25 U/L (8-78); Potassium 4.5 mmol/L (3.3-5.1); Sodium 139 mmol/L (135-145); Total Protein 8.2 g/dL (6.5-8.0)
[2025-08-13 12:00] VITALS: BP 125/84; PULSE 72; RESP 18; O2SAT 99
[2025-08-13] MEDS: iohexoL 350 MG/ML 100 ML INFUS..BTL 85 ML IV (12:35)
[2025-08-13 13:22] VITALS: BP 128/86; PULSE 70; RESP 16; TEMP 36.4; O2SAT 98
[2025-08-13 14:07] VITALS: BP 128/86; PULSE 70; RESP 16; TEMP 36.4; O2SAT 98
--- OUTSIDE RECORDS SUMMARY | 2025-08-13 21:39 | XMS_ITS | Clinical Summary ---
Author Organization 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 Role Phone Physician, Pcp Unknown Primary Care Provider Dacia vailable Allergies No known active allergies Medications No known medications Active Problems No known active problems Encounters Date Type Department Care Team Description 07/02/2025 12:50 AM EDT - 07/02/2025 4:54 AM EDT Emergency [facility] Emergency [address] [place] [address] Generalized abdominal pain (Primary Dx); Nausea; Hepatic steatosis; Alcohol abuse with unspecified alcohol-induced disorder (CMS/HCC V24) Discharge Disposition: Home or Self Care from Last 3 Months Social History Tobacco Use Types Packs/Day Years Used Date Smoking Tobacco: Never Assessed Sex and Gender Information Value Date Recorded Sex Assigned at Not on file Legal Sex Male 2:55 AM EST Gender Identity Not on file Sexual Orientation Not on file Obstetrics History Last Filed Vital Signs Vital Sign Reading Time Taken Comments Blood Pressure 130/95 07/02/2025 4:14 AM EDT Pulse 88 07/02/2025 4:14 AM EDT Temperature 36.6 C (97.8 F) 07/01/2025 11:58 PM EDT Respiratory Rate 16 07/02/2025 4:14 AM EDT Oxygen Saturation 96% 07/02/2025 4:14 AM EDT Inhaled Oxygen Concentration - - Weight - - Height - - Body Mass Index - - Plan of Treatment Health Maintenance Due Date Last Done Comments Colorectal Cancer Screening: Colonoscopy 1975 Hepatitis B Vaccines (1 of 3 - 19+ 3-dose series) 1994 Hepatitis A Vaccines (2 of 2 - Risk 2-dose series) 01/26/2016 07/28/2015 Cholesterol Screening (Lipid Panel) 08/28/2022 HIV Screening 08/28/2022 Hepatitis C Screening 08/28/2022 Social Influencers of Health Screening 08/28/2022 Depression Screening 09/25/2024 Pneumococcal Vaccine: 50+ Years (3 of 3 - PCV20 or PCV21) 2025 10/27/2015, 06/24/2010 RSV Immunization Adult Patients (1 - Risk 50-74 years 1-dose series) 2025 Zoster Vaccines (1 of 2) 2025 COVID-19 Vaccine (5 - season) 2025 07/18/2024, 07/10/2023, 08/17/2022, Additional history exists Influenza Vaccine (#1) 2025 , 07/10/2023, 07/25/2022, Additional history exists Hypertension/CHF/CAD Annual BMP Blood Test 07/02/2026 07/02/2025 DTaP,Tdap,and Td Vaccines (4 - Td or Tdap) 06/23/2031 06/23/2021, 03/16/2018, 06/24/2010 HIB Vaccines Aged Out No longer eligi [...] on patient's age to complete this topic Procedures Procedure Name Priority Date/Time Associated Diagnosis Comments US ABDOMEN LIMITED STAT 07/02/2025 3: 35 AM EDT BILIRUBIN DUPLICATE PROCEDURE TO ORDER STAT 07/02/2025 12:09 AM EDT CBC WITH AUTO DIFFERENTIAL STAT 07/02/2025 12:09 AM EDT LIPASE STAT 07/02/2025 12:09 AM EDT COMPREHENSIVE METABOLIC PANEL STAT 07/02/2025 12:09 AM EDT CBC AND DIFFERENTIAL STAT 07/02/2025 12:09 AM EDT from Last 3 Months Results * US Abdomen Limited (07/02/2025 3:35 AM EDT) Anatomical Region Laterality Modality Body Ultrasound 07/02/2025 3:59 AM EDT Impressions 07/02/2025 3:59 AM EDT 1. The CBD was not visualized. No acute findings. 2. Hepatic steatosis This document has been electronically signed by: Edward Farr MD on 07/02/2025 03:59:20 Narrative 07/02/2025 3:59 AM EDT INDICATION: cholecystitis US abdomen limited Comparison: CT/SR - ABDOMEN AND PELVIS C+ CT - 09/01/22 04:37 EST Findings: The visualized pancreas is normal. The aorta and inferior vena cava are normal caliber. Echogenic liver parenchyma, consistent with hepatic steatosis. There is no intrahepatic bile duct dilatation. The common duct is no visualized. The gallbladder is normal. There is no sonographic Peters sign. The main portal vein is antegrade. The right kidney is 10.8 cm in length. No ascites. Procedure Note Edward Farr - 07/02/2025 INDICATION: cholecystitis US abdomen limited Comparison: CT/SR - ABDOMEN AND PELVIS C+ CT - 09/01/22 04:37 EST Findings: The visualized pancreas is normal. The aorta and inferior vena cava are normal caliber. Echogenic liver parenchyma, consistent with hepatic steatosis. There is no intrahepatic bile duct dilatation. The common duct is no visualized. The gallbladder is normal. There is no sonographic Peters sign. The main portal vein is antegrade. The right kidney is 10.8 cm in length. No ascites. IMPRESSION: 1. The CBD was not visualized. No acute findings. 2. Hepatic steatosis This document has been electronically signed by: Edward Farr MD on 07/02/2025 03:59:20 us Tere Martinez MD IMG US PROCEDURES Final Result * Bilirubin duplicate procedure to order (07/02/2025 12:09 AM EDT) [facility] Total Bilirubin 0.3 0.0 - 1.4 mg/dL LAB CHEMISTRY METHOD 07/02/2025 12:40 AM EDT [facility] Bilirubin, Direct 0.1 0.0 - 0.3 mg/dL LAB CHEMISTRY METHOD 07/02/2025 12:40 AM EDT [facility] Bilirubin, Indirect 0.2 0.0 - 1.1 mg/dL LAB CHEMISTRY METHOD 07/02/2025 12:40 AM EDT [facility] Blood Venous blood specimen / Unknown Venipuncture / Unknown 07/02/2025 12:09 AM EDT 07/02/2025 12:18 AM EDT Sarah VILCHIS LAB BLOOD ORDERABLES Fin al Result [facility] [address] [place] [address], [place] [phone] * CBC auto differential (07/02/2025 12:09 AM EDT) [facility] WBC 8.6 4.8 - 10.8 K/mcL LAB HEMETOLOGY METHOD 07/02/2025 12:22 AM EDT [facility] RBC 4.90 4.50 - 5.50 M/mcL LAB HEMETOLOGY METHOD 07/02/2025 12:22 AM EDT [facility] Hemoglobin 15.2 13.5 - 17.5 g/dL LAB HEMETOLOGY METHOD 07/02/2025 12:22 AM EDT [facility] Hematocrit 44.9 42.0 - 54.0 % LAB HEMETOLOGY METHOD 07/02/2025 12:22 AM EDT [facility] MCV 92.0 79.0 - 98.0 FL LAB HEMETOLOGY METHOD 07/02/2025 12:22 AM [facility] MCH 31.1 27.0 - 32.0 pcg LAB HEMETOLOGY METHOD 07/02/2025 12:22 AM [facility] MCHC 33.9 32.0 - 37.0 g/dL LAB HEMETOLOGY METHOD 07/02/2025 12:22 AM [facility] RDW 11.7 11.0 - 15.0 % LAB HEMETOLOGY METHOD 07/02/2025 12:22 AM [facility] Platelets 283 130 - 400 K/mcL LAB HEMETOLOGY METHOD 07/02/2025 12:22 AM [facility] MPV 10.4 7.0 - 11.0 FL LAB HEMETOLOGY METHOD 07/02/2025 12:22 AM [facility] NRBC 0.0 <1.0 % LAB HEMETOLOGY METHOD 07/02/2025 12:22 AM [facility] NRBC Absolute 0.00 <0.10 K/mcL LAB HEMETOLOGY METHOD 07/02/2025 12:22 AM [facility] Neutrophils Relative 64.7 % LAB HEMETOLOGY METHOD 07/02/2025 12:22 AM [facility] Lymphocytes Relative 27.2 % LAB HEMETOLOGY METHOD 07/02/2025 12:22 AM [facility] Monocytes Relative 6.0 % LAB HEMETOLOGY METHOD 07/02/2025 12:22 AM [facility] Eosinophils Relative 1.3 % LAB HEMETOLOGY METHOD 07/02/2025 12:22 AM [facility] Basophils Relative 0.7 % LAB HEMETOLOGY METHOD 07/02/2025 12:22 AM [facility] Immature Granulocytes Relative 0.1 % LAB HEMETOLOGY METHOD 07/02/2025 12:22 AM EDT [facility] Neutrophils Absolute 5.55 1.50 - 7.00 K/mcL LAB HEMETOLOGY METHOD 07/02/2025 12:22 AM EDT [facility] Lymphocytes Absolute 2.33 1.00 - 5.00 K/mcL LAB HEMETOLOGY METHOD 07/02/2025 12:22 AM EDT [facility] Monocytes Absolute 0.51 0.20 - 1.00 K/mcL LAB HEMETOLOGY METHOD 07/02/2025 12:22 AM EDT [facility] Eosinophils Absolute 0.11 0.00 - 0.50 K/[facility] LAB HEMETOLOGY METHOD 07/02/2025 12:22 AM EDT [facility] Basophils Absolute 0.06 0.00 - 0.20 K/mcL LAB HEMETOLOGY METHOD 07/02/2025 12:22 AM EDT [facility] Immature Granulocytes Absolute 0.01 0.00 - 0.03 K/mcL LAB HEMETOLOGY METHOD 07/02/2025 12:[facility] Blood Venous blood specimen / Unknown Venipuncture / Unknown 07/02/2025 12:09 AM EDT 07/02/2025 12:18 AM EDT Sarah VILCHIS LAB BLOOD ORDERABLES Fin al Result [facility] [address] [place] [address], * Lipase (07/02/2025 12:09 AM EDT) Lipase 44 13 - 75 unit/L LAB CHEMISTRY METHOD 07/02/2025 12:40 AM EDT [facility] Blood Venous blood specimen / Unknown Venipuncture / Unknown 07/02/2025 12:09 AM EDT 07/02/2025 12:18 AM EDT Sarah VILCHIS LAB BLOOD ORDERABLES Fin al Result [facility] [address] [place] [address], [place] [phone] * (ABNORMAL) Comprehensive metabolic panel (07/02/2025 12:09 AM EDT) Sodium 136 133 - 145 mmol/L LAB CHEMISTRY METHOD 07/02/2025 12:40 AM [facility] Potassium 3.8 3.5 - 5.5 mmol/L LAB CHEMISTRY METHOD 07/02/2025 12:40 AM [facility] Chloride 106 96 - 110 mmol/L LAB CHEMISTRY METHOD 07/02/2025 12:40 AM [facility] CO2 20(L) 21 - 32 mmol/L LAB CHEMISTRY METHOD 07/02/2025 12:40 AM [facility] Anion Gap 10 3 - 11 LAB CHEMISTRY METHOD 07/02/2025 12:40 AM [facility] Glucose 97 70 - 100 mg/dL LAB CHEMISTRY METHOD 07/02/2025 12:40 AM [facility] BUN 15 5 - 25 mg/dL LAB CHEMISTRY METHOD 07/02/2025 12:40 AM [facility] Creatinine 0.85 0.70 - 1.30 mg/dL LAB CHEMISTRY METHOD 07/02/2025 12:40 AM [facility] eGFR 106 >=60 mL/min/1. 73m2 LAB CHEMISTRY METHOD 07/02/2025 12:40 AM [facility] Comment:Calculation based on the Chronic Kidney Disease Epidemiology Collaboration (CKD-EPI) equation refit without adjustment for race. BUN/Creatinine Ratio 17.6 LAB CHEMISTRY METHOD 07/02/2025 12:40 AM [facility] Calcium 9.2 8.5 - 10.5 mg/dL LAB CHEMISTRY METHOD 07/02/2025 12:40 AM [facility] AST (SGOT) 82(H) 10 - 42 unit/L LAB CHEMISTRY METHOD 07/02/2025 12:40 AM [facility] ALT (SGPT) 133(H) 10 - 60 unit/L LAB CHEMISTRY METHOD 07/02/2025 12:40 AM [facility] Alkaline Phosphatase 98 42 - 121 unit/L LAB CHEMISTRY METHOD 07/02/2025 12:40 AM [facility] Total Protein 7.9 6.0 - 8.0 g/dL LAB CHEMISTRY METHOD 07/02/2025 12:40 AM [facility] Albumin 4.3 3.2 - 5.0 g/dL LAB CHEMISTRY METHOD 07/02/2025 12:40 AM [facility] Total Bilirubin 0.3 0.0 - 1.4 mg/dL LAB CHEMISTRY METHOD 07/02/2025 12:40 AM [facility] Blood Venous blood specimen / Unknown Venipuncture / Unknown 07/02/2025 12:09 AM EDT 07/02/2025 12:18 AM EDT Sarah VILCHIS LAB BLOOD ORDERABLES Fin al Result [facility] [address] [place] [address], from Last 3 Months Insurance [employer] [employer] Advance Directives Documents on File Type Date Recorded 

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
== END 2025-08-13 14:08 | disposition home or self-care (01) ==
PROVIDERS: Emergency Provider Emergency Medicine
DX: K57.32 Diverticulitis of large intestine without perforation or abscess without bleeding (principal); R10.32 Left lower quadrant pain; Z03.818 Encounter for observation for suspected exposure to other biological agents ruled out; R11.10 Vomiting, unspecified
CPT/HCPCS: 74177; 80053; 81003; 83690; 85025; 87502; 87635; 96361; 96374; 96376; 99285; J1885; Q9967

== ENCOUNTER → 2025-08-13 11:56 | Outpatient (BNV) | payer OTHER, SELFPAY | PROVIDERS: Emergency Provider Emergency Medicine; Visit Provider Radiology Diagnostic Ultrasound | DX: K57.30 Diverticulosis of large intestine without perforation or abscess without bleeding (principal) | CPT/HCPCS: 74177 ==